=== PATIENT | female | born 1940 | race African-American/Black ===

== ENCOUNTER 2019-08-26 05:51 | Inpatient (IN) | payer MEDICARE, MEDICAID, OTHER ==
[~2019-08-26] VITALS: Ht 157.5 cm; Wt 69.9 kg
[2019-08-26] MEDS ORDERED: SODIUM CHLORIDE 0.9% 1,000 ML IV ONE (06:19)
[2019-08-26] MEDS ORDERED: ONDANSETRON HCL 4MG/2ML INJ IV STA (06:19)
[2019-08-26] MEDS ORDERED: MORPHINE SULFATE 4 MG/ML CPJ (NOT FOR IM USE) IV STA (06:19)
[2019-08-26 06:44] LABS: BASOPHILS % 0.7 % (0.0-2.0); EOSINOPHILS % 3.1 % (0.0-5.0); HEMATOCRIT. 38.3 % (36.0-48.0); HEMOGLOBIN. 12.9 g/dL (12.0-16.0); LYMPHOCYTES % 23.7 % (20.0-50.0); MEAN CORPUSCULAR HEMOGLOBIN 27.2 pg (28.0-32.0); MEAN CORPUSCULAR VOLUME 80.8 fL (81.0-99.0); MEAN PLATELET VOLUME 8.3 fl (7.4-10.4); MONOCYTES % 9.6 % (2.0-8.0); NEUTROPHILS % 62.9 % (40.0-76.0); PLATELET 227 x1000/uL (130-400); RED BLOOD CELL COUNT 4.74 mill/uL (4.2-5.4); RED CELL DISTRIBUTION WIDTH 13.5 % (11.6-14.6)
[2019-08-26 06:50] LABS: CHLORIDE 110 mEq/L (98-107)
[2019-08-26 06:59] LABS: CREATINE KINASE 83 IU/L (26-192)
[2019-08-26 07:01] LABS: CREATINE KINASE MB FRACTION 1.2 ng/mL (0.5-3.6)
[2019-08-26 10:30] VITALS: BP 138/64
[2019-08-26] MEDS ORDERED: ASPI-1497 MT (11:11)
[2019-08-26] MEDS ORDERED: IBUP-2028 MT (11:11)
[2019-08-26] MEDS: INSULIN LISPRO 100 UNITS/ML SUBCUT SCH ×3 (12:15→20:51)
[2019-08-26] MEDS ORDERED: DEXTROSE 50% WATER 50ML SYRINGE IV PRN (12:15)
[2019-08-26] MEDS ORDERED: IBUPROFEN 400MG TABLET PO PRN (12:15)
[2019-08-26 12:30] VITALS: BP 140/62
[2019-08-26] MEDS ORDERED: HYDROCODONE/ACETAMINOPHEN 5/325MG TABLET PO PRN (14:00)
[2019-08-26] MEDS: ASPIRIN 81MG TABLET PO SCH (14:08)
[2019-08-26 16:25] VITALS: BP 116/48
[2019-08-26 16:38] LABS: CREATINE KINASE 92 IU/L (26-192)
[2019-08-26 16:39] LABS: CREATINE KINASE MB FRACTION 1.4 ng/mL (0.5-3.6)
[2019-08-26] MEDS: BLOOD SUGAR DIAGNOSTIC STRIP TEST SCH ×2 (17:33→20:51)
[2019-08-26 20:00] VITALS: BP 126/68
[2019-08-27] VITALS: BP 144/67
[2019-08-27 04:00] VITALS: BP 135/77
[2019-08-27] MEDS: INSULIN LISPRO 100 UNITS/ML SUBCUT SCH ×3 (06:14→17:15)
[2019-08-27] MEDS: BLOOD SUGAR DIAGNOSTIC STRIP TEST SCH ×3 (06:14→16:45)
[2019-08-27 08:00] VITALS: BP 127/74
[2019-08-27] MEDS ORDERED: ASPIRIN 81MG EC TABLET PO SCH (09:00)
[2019-08-27 12:00] VITALS: BP 141/73
[2019-08-27] MEDS: ASPIRIN 81MG TABLET PO SCH (15:37)
[2019-08-27 16:00] VITALS: BP 132/63
[2019-08-27 16:51] VITALS: BP 132/63
== END 2019-08-27 18:40 | disposition home or self-care (01) | DRG 552 ==
LOC: ER 05:51 → EDBD 05:51 → 5WST 08:29 → ENRESERV 09:54
PROVIDERS: ADMIT Internal Medicine; ATTEND Internal Medicine
DX: M51.36 Other intervertebral disc degeneration, lumbar region (principal); M79.662 Pain in left lower leg; R07.9 Chest pain, unspecified; I25.10 Atherosclerotic heart disease of native coronary artery without angina pectoris; M19.90 Unspecified osteoarthritis, unspecified site; M48.00 Spinal stenosis, site unspecified; Z86.718 Personal history of other venous thrombosis and embolism; Z90.710 Acquired absence of both cervix and uterus; Z90.49 Acquired absence of other specified parts of digestive tract; Z79.899 Other long term (current) drug therapy; Z79.82 Long term (current) use of aspirin
CPT/HCPCS: 36415; 72148; 80053; 82550; 82553; 82962; 83735; 84484; 85025; 93005; 93306; 93970; 96374; 99285; J2270; J2405; J7030

== ENCOUNTER 2022-05-16 10:53 | Emergency (ER) | payer MEDICARE, MEDICAID ==
[~2022-05-16] VITALS: Ht 157.5 cm; Wt 73.0 kg
[~2022-05-16 10:53] MED LIST: ASPI-1497 MT; IBUP-2028 MT
[2022-05-16] MEDS ORDERED: ACETAMINOPHEN 325MG TABLET PO STA (11:53)
[2022-05-16 12:47] LABS: BASOPHILS % 0.6 % (0.0-2.0); EOSINOPHILS % 2.2 % (0.0-5.0); HEMATOCRIT. 38.9 % (36.0-48.0); HEMOGLOBIN. 12.5 g/dL (12.0-16.0); MEAN CORPUSCULAR HEMOGLOBIN 26.2 pg (28.0-32.0); MEAN CORPUSCULAR VOLUME 81.8 fL (81.0-99.0); MEAN PLATELET VOLUME 8.2 fl (7.4-10.4); MONOCYTES % 14.9 % (2.0-8.0); NEUTROPHILS % 65.3 % (40.0-76.0); PLATELET 299 x1000/uL (130-400); RED BLOOD CELL COUNT 4.76 mill/uL (4.2-5.4); RED CELL DISTRIBUTION WIDTH 14.6 % (11.6-14.6)
[2022-05-16 13:34] LABS: CLARITY URINE CLEAR (CLEAR); COLOR URINE YELLOW (YELLOW); KETONES URINE NEGATIVE (NEGATIVE); LEUKOCYTE ESTERASE URINE 1+ (NEGATIVE); NITRITE URINE NEGATIVE (NEGATIVE); OCCULT BLOOD URINE 2+ (NEGATIVE); PH URINE 6.5 (4.5-8.0); PROTEIN URINE NEGATIVE (NEGATIVE); SPECIFIC GRAVITY URINE 1.006 (1.005-1.030); UROBILINOGEN URINE 0.2 E.U./dL (0.2-1.0)
[2022-05-16 13:37] LABS: CHLORIDE 108 mEq/L (98-107)
[2022-05-16] MEDS ORDERED: NAPR375T5 PO (14:44)
[2022-05-16] MEDS ORDERED: SULF1TAB48 PO (14:44)
[2022-05-16] MEDS ORDERED: ONDA4TAB50 PO (14:44)
[2022-05-16 15:07] VITALS: BP 136/59
== END 2022-05-16 15:13 | disposition home or self-care (01) ==
LOC: ER 10:53
DX: S09.93XA Unspecified injury of face, initial encounter (principal); I10 Essential (primary) hypertension; N39.0 Urinary tract infection, site not specified; Z20.822 Contact with and (suspected) exposure to COVID-19; Z90.49 Acquired absence of other specified parts of digestive tract; W01.0XXA Fall on same level from slipping, tripping and stumbling without subsequent striking against object, initial encounter; Y93.01 Activity, walking, marching and hiking; Y92.89 Other specified places as the place of occurrence of the external cause; Y99.8 Other external cause status
CPT/HCPCS: 36415; 70450; 70486; 71045; 80053; 81003; 83605; 83690; 83880; 85025; 87426; 93970; 99285; C9803

== ENCOUNTER 2022-06-10 09:43 | Inpatient (IN) | payer MEDICARE, MEDICAID ==
[~2022-06-10] VITALS: Ht 154.9 cm; Wt 66.7 kg
[~2022-06-10 09:43] MED LIST changes: +NAPR375T5 PO; +ONDA4TAB50 PO; +SULF1TAB48 PO
[2022-06-10 12:41] LABS: BASOPHILS % 0.6 % (0.0-2.0); EOSINOPHILS % 1.5 % (0.0-5.0); HEMATOCRIT. 38.3 % (36.0-48.0); HEMOGLOBIN. 12.6 g/dL (12.0-16.0); LYMPHOCYTES % 11.6 % (20.0-50.0); MEAN CORPUSCULAR VOLUME 78.9 fL (81.0-99.0); MEAN PLATELET VOLUME 7.8 fl (7.4-10.4); MONOCYTES % 11.6 % (2.0-8.0); NEUTROPHILS % 74.7 % (40.0-76.0); PLATELET 342 x1000/uL (130-400); RED BLOOD CELL COUNT 4.86 mill/uL (4.2-5.4); RED CELL DISTRIBUTION WIDTH 14.9 % (11.6-14.6)
[2022-06-10 12:49] LABS: CHLORIDE 107 mEq/L (98-107)
[2022-06-10 16:40] LABS: PROTHROMBIN TIME 10.6 sec (9.6-11.0)
[2022-06-10 17:01] LABS: CREATINE KINASE 4207 IU/L (26-192)
[2022-06-10 17:02] LABS: HEPATITIS B SURFACE ANTIGEN NEGATIVE
[2022-06-10] MEDS ORDERED: ACETAMINOPHEN 325MG TABLET PO PRN ×2 (18:15)
[2022-06-10] MEDS ORDERED: CLONIDINE 0.1MG TABLET PO PRN (18:15)
[2022-06-10] MEDS ORDERED: ONDANSETRON HCL 4MG/2ML INJ IV PRN (18:15)
[2022-06-10] MEDS ORDERED: AMLO5TAB4 MT (18:29)
[2022-06-10 18:31] VITALS: BP 141/66
[2022-06-10 20:00] VITALS: BP 144/60
[2022-06-10] MEDS: SODIUM CHLORIDE 0.9% INJ 3ML FLUSH IVF SCH (20:27)
[2022-06-10] MEDS: DIPHENHYDRAMINE 50MG/ML VIAL IV PRN (21:34)
[2022-06-11] VITALS: BP 148/70
[2022-06-11 04:00] VITALS: BP 110/47
[2022-06-11] MEDS: SODIUM CHLORIDE 0.9% INJ 3ML FLUSH IVF SCH ×4 (06:00→22:14)
[2022-06-11 06:33] LABS: HEMATOCRIT. 36.9 % (36.0-48.0); HEMOGLOBIN. 11.9 g/dL (12.0-16.0); MEAN CORPUSCULAR HEMOGLOBIN 25.8 pg (28.0-32.0); MEAN CORPUSCULAR VOLUME 80.4 fL (81.0-99.0); MEAN PLATELET VOLUME 8.4 fl (7.4-10.4); PLATELET 320 x1000/uL (130-400); RED BLOOD CELL COUNT 4.59 mill/uL (4.2-5.4); RED CELL DISTRIBUTION WIDTH 14.7 % (11.6-14.6)
[2022-06-11 08:00] VITALS: BP 112/59
[2022-06-11 08:41] LABS: CHLORIDE 107 mEq/L (98-107)
[2022-06-11 09:03] LABS: CREATINE KINASE 3469 IU/L (26-192)
[2022-06-11] MEDS: AMLODIPINE 5MG TABLET PO SCH (09:12)
[2022-06-11] MEDS: DIPHENHYDRAMINE 50MG/ML VIAL IV PRN (09:12)
[2022-06-11] MEDS: ASPIRIN 81MG TABLET PO SCH (09:13)
[2022-06-11 12:00] VITALS: BP 132/87
[2022-06-11 14:26] LABS: PLATELET ESTIMATE NORMAL
[2022-06-11 20:00] VITALS: BP 143/64
[2022-06-12] VITALS: BP 116/46
[2022-06-12 04:00] VITALS: BP 107/45
[2022-06-12] MEDS: SODIUM CHLORIDE 0.9% INJ 3ML FLUSH IVF SCH ×3 (06:00→21:09)
[2022-06-12 07:25] LABS: BASOPHILS % 0.6 % (0.0-2.0); EOSINOPHILS % 4.1 % (0.0-5.0); HEMOGLOBIN. 12.2 g/dL (12.0-16.0); LYMPHOCYTES % 14.7 % (20.0-50.0); MEAN CORPUSCULAR HEMOGLOBIN 26.1 pg (28.0-32.0); MEAN CORPUSCULAR VOLUME 78.8 fL (81.0-99.0); MEAN PLATELET VOLUME 8.3 fl (7.4-10.4); MONOCYTES % 14.6 % (2.0-8.0); PLATELET 304 x1000/uL (130-400); RED CELL DISTRIBUTION WIDTH 14.9 % (11.6-14.6)
[2022-06-12 07:51] LABS: CHLORIDE 109 mEq/L (98-107)
[2022-06-12 08:00] VITALS: BP 111/66
[2022-06-12 08:19] LABS: CREATINE KINASE 3111 IU/L (26-192)
[2022-06-12] MEDS: AMLODIPINE 5MG TABLET PO SCH (09:13)
[2022-06-12] MEDS: ASPIRIN 81MG TABLET PO SCH (09:13)
[2022-06-12 12:00] VITALS: BP 117/49
[2022-06-12 13:06] LABS: ANTI-NUCLEAR ANTIBODIES DIRECT Negative (Negative)
[2022-06-12] MEDS: DIPHENHYDRAMINE 50MG/ML VIAL IV PRN (13:55)
[2022-06-12 16:00] VITALS: BP 116/58
[2022-06-12 20:00] VITALS: BP 125/67
[2022-06-12] MEDS: HYDROCORTISONE 2.5% OINT 20GM TOP SCH (21:08)
[2022-06-12] MEDS: HYDROXYCHLOROQUINE SULFATE 200MG TABLET PO SCH (21:08)
[2022-06-12] MEDS: MYCOPHENOLATE MOFETIL 500MG TABLET PO SCH (21:09)
[2022-06-12] MEDS: CELECOXIB 200MG CAPSULE PO SCH (21:09)
[2022-06-13] VITALS: BP 135/61
[2022-06-13] MEDS: METHYLPREDNISOLONE SOD SUCC 40 MG/ML VIAL IV SCH ×4 (00:13→17:51)
[2022-06-13 04:00] VITALS: BP 120/51
[2022-06-13] MEDS: SODIUM CHLORIDE 0.9% INJ 3ML FLUSH IVF SCH ×3 (05:11→21:36)
[2022-06-13 05:13] LABS: ALDOLASE 34.5 U/L (3.3-10.3)
[2022-06-13 07:15] LABS: BASOPHILS % 0.3 % (0.0-2.0); HEMATOCRIT. 37.5 % (36.0-48.0); LYMPHOCYTES % 8.2 % (20.0-50.0); MEAN CORPUSCULAR HEMOGLOBIN 25.7 pg (28.0-32.0); MEAN CORPUSCULAR VOLUME 80.4 fL (81.0-99.0); MEAN PLATELET VOLUME 8.1 fl (7.4-10.4); MONOCYTES % 1.7 % (2.0-8.0); NEUTROPHILS % 89.8 % (40.0-76.0); PLATELET 294 x1000/uL (130-400); RED BLOOD CELL COUNT 4.67 mill/uL (4.2-5.4); RED CELL DISTRIBUTION WIDTH 14.6 % (11.6-14.6)
[2022-06-13 07:17] LABS: CHLORIDE 107 mEq/L (98-107)
[2022-06-13 07:43] LABS: CREATINE KINASE 3097 IU/L (26-192)
[2022-06-13] MEDS: BETAMETHASONE DIPROPIONATE 0.05% LOTION 60ML TOP SCH ×2 (09:00→21:00)
[2022-06-13] MEDS: MYCOPHENOLATE MOFETIL 500MG TABLET PO SCH ×2 (11:55→21:35)
[2022-06-13] MEDS: CELECOXIB 200MG CAPSULE PO SCH ×2 (11:55→17:51)
[2022-06-13] MEDS: ASPIRIN 81MG TABLET PO SCH (11:55)
[2022-06-13] MEDS: HYDROXYCHLOROQUINE SULFATE 200MG TABLET PO SCH (11:55)
[2022-06-13] MEDS: AMLODIPINE 5MG TABLET PO SCH (11:55)
[2022-06-13] MEDS: DIPHENHYDRAMINE 50MG/ML VIAL IV PRN (11:56)
[2022-06-13] MEDS: AZATHIOPRINE 50MG TABLET PO SCH (11:56)
[2022-06-13 12:00] VITALS: BP 121/53
[2022-06-13] MEDS ORDERED: DOCUSATE SODIUM 250MG CAPSULE PO PRN (12:30)
[2022-06-13 16:00] VITALS: BP 131/79
[2022-06-13 20:00] VITALS: BP 115/90
[2022-06-13] MEDS: HYDROCORTISONE 2.5% OINT 20GM TOP SCH (21:34)
[2022-06-14] VITALS: BP 117/58
[2022-06-14] MEDS: METHYLPREDNISOLONE SOD SUCC 40 MG/ML VIAL IV SCH ×4 (00:48→17:08)
[2022-06-14 04:00] VITALS: BP 110/52
[2022-06-14] MEDS: SODIUM CHLORIDE 0.9% INJ 3ML FLUSH IVF SCH ×3 (05:04→22:31)
[2022-06-14 08:00] VITALS: BP 109/62
[2022-06-14 08:46] LABS: HEMATOCRIT. 35.3 % (36.0-48.0); HEMOGLOBIN. 11.6 g/dL (12.0-16.0); MEAN CORPUSCULAR HEMOGLOBIN 25.9 pg (28.0-32.0); MEAN CORPUSCULAR VOLUME 79.1 fL (81.0-99.0); MEAN PLATELET VOLUME 8.3 fl (7.4-10.4); PLATELET 321 x1000/uL (130-400); RED BLOOD CELL COUNT 4.46 mill/uL (4.2-5.4); RED CELL DISTRIBUTION WIDTH 14.3 % (11.6-14.6)
[2022-06-14] MEDS: AMLODIPINE 5MG TABLET PO SCH (09:00)
[2022-06-14 09:11] LABS: CHLORIDE 109 mEq/L (98-107)
[2022-06-14] MEDS: ASPIRIN 81MG TABLET PO SCH (09:13)
[2022-06-14] MEDS: HYDROXYCHLOROQUINE SULFATE 200MG TABLET PO SCH (09:13)
[2022-06-14] MEDS: MYCOPHENOLATE MOFETIL 500MG TABLET PO SCH (09:13)
[2022-06-14] MEDS: AZATHIOPRINE 50MG TABLET PO SCH (09:13)
[2022-06-14] MEDS: CELECOXIB 200MG CAPSULE PO SCH ×2 (09:39→17:07)
[2022-06-14 11:05] LABS: PLATELET ESTIMATE NORMAL
[2022-06-14 12:00] VITALS: BP 137/70
[2022-06-14] MEDS: BETAMETHASONE DIPROPIONATE 0.05% LOTION 60ML TOP SCH ×2 (14:50→21:00)
[2022-06-14] MEDS ORDERED: DEXTROSE 50% WATER 50ML SYRINGE IV PRN (15:45)
[2022-06-14 16:00] VITALS: BP_SYST 139; BP_SYST 150; BP_DIAS 75; BP_DIAS 79
[2022-06-14] MEDS: BLOOD SUGAR DIAGNOSTIC STRIP TEST SCH ×2 (16:41→21:00)
[2022-06-14] MEDS: INSULIN LISPRO 100 UNITS/ML SUBCUT SCH ×3 (17:10→21:00)
[2022-06-14] MEDS ORDERED: INSULIN LISPRO 100 UNITS/ML SUBCUT SCH (18:10)
[2022-06-14 20:37] VITALS: BP 129/64
[2022-06-14] MEDS: INSULIN GLARGINE 100 UNITS/ML SUBCUT SCH (22:23)
[2022-06-14] MEDS: HYDROCORTISONE 2.5% OINT 20GM TOP SCH (22:26)
[2022-06-15 00:10] VITALS: BP 110/42
[2022-06-15] MEDS: METHYLPREDNISOLONE SOD SUCC 40 MG/ML VIAL IV SCH ×4 (00:51→17:03)
[2022-06-15 04:00] VITALS: BP 110/55
[2022-06-15] MEDS: SODIUM CHLORIDE 0.9% INJ 3ML FLUSH IVF SCH ×3 (06:13→20:49)
[2022-06-15] MEDS: MYCOPHENOLATE MOFETIL 500MG TABLET PO SCH ×2 (06:13→08:44)
[2022-06-15] MEDS: BLOOD SUGAR DIAGNOSTIC STRIP TEST SCH ×4 (06:14→20:41)
[2022-06-15] MEDS: CELECOXIB 200MG CAPSULE PO SCH ×2 (06:28→17:03)
[2022-06-15 08:00] VITALS: BP 142/67
[2022-06-15] MEDS: INSULIN LISPRO 100 UNITS/ML SUBCUT SCH ×4 (08:10→20:47)
[2022-06-15] MEDS: AMLODIPINE 5MG TABLET PO SCH (08:40)
[2022-06-15] MEDS: ASPIRIN 81MG TABLET PO SCH (08:40)
[2022-06-15] MEDS: HYDROXYCHLOROQUINE SULFATE 200MG TABLET PO SCH (08:40)
[2022-06-15] MEDS: AZATHIOPRINE 50MG TABLET PO SCH (08:40)
[2022-06-15] MEDS: BETAMETHASONE DIPROPIONATE 0.05% LOTION 60ML TOP SCH ×2 (08:41→20:51)
[2022-06-15 12:00] VITALS: BP 133/69
[2022-06-15 12:27] LABS: HEMATOCRIT. 36.7 % (36.0-48.0); HEMOGLOBIN. 11.5 g/dL (12.0-16.0); MEAN CORPUSCULAR HEMOGLOBIN 25.6 pg (28.0-32.0); MEAN CORPUSCULAR VOLUME 81.5 fL (81.0-99.0); MEAN PLATELET VOLUME 8.3 fl (7.4-10.4); PLATELET 328 x1000/uL (130-400); RED BLOOD CELL COUNT 4.51 mill/uL (4.2-5.4); RED CELL DISTRIBUTION WIDTH 15.1 % (11.6-14.6)
[2022-06-15 12:35] LABS: CHLORIDE 108 mEq/L (98-107)
[2022-06-15 13:06] LABS: G6PD QUANTITATIVE 357 (127-427)
[2022-06-15 13:17] LABS: PLATELET ESTIMATE NORMAL
[2022-06-15 13:44] VITALS: BP 133/69
[2022-06-15 16:00] VITALS: BP 132/63
[2022-06-15] MEDS: INSULIN GLARGINE 100 UNITS/ML SUBCUT SCH (20:48)
[2022-06-15] MEDS: HYDROCORTISONE 2.5% OINT 20GM TOP SCH (20:51)
[2022-06-16 10:10] LABS: ANTI-DNA DOUBLE STRANDED QUANT 5 IU/mL (0-9); ANTI-JO 1 ABS <0.2 AI (0.0-0.9); RNP ANTIBODY < 0.2 AI (0.0-0.9)
[2022-06-16 13:06] LABS: ACTIN (SMOOTH MUSCLE) ANTIBODY 7 Units (0-19); ANGIOTENSION CONVERTING ENZYME 44 U/L (14-82)
[2022-06-16 15:09] LABS: ANTI-CARDIOLIPIN AB IGA < 9 APL U/mL (0-11); ANTI-CARDIOLIPIN AB IGM 16 MPL U/mL (0-12)
[2022-06-16 17:11] LABS: ANTI-MYELOPEROXIDASE AB < 0.2 units (0.0-0.9); ANTI-PROTEINASE 3 ABS < 0.2 units (0.0-0.9)
[2022-06-17 09:10] LABS: CYC CITRULLINATED PEP IgG/IgA 9 units (0-19)
[2022-06-17 13:06] LABS: ATYPICAL P-ANCA <1:20 titer (Neg:<1:20); CYTOPLASMIC C-ANCA <1:20 titer (Neg:<1:20); PERINUCLEAR P-ANCA <1:20 titer (Neg:<1:20)
[2022-06-18 13:06] LABS: ANA IFA Positive (.)
== END 2022-06-15 22:03 | DRG 545 ==
LOC: ER 09:43 → 7WST 14:57 → EDBEDREQ 15:02 → EDBEDREQTM 15:02 → EDBEDREQSVC 15:02 → ENRESERV 15:14
PROVIDERS: ADMIT Internal Medicine; ATTEND Internal Medicine
DX: M33.20 Polymyositis, organ involvement unspecified (principal); E43 Unspecified severe protein-calorie malnutrition; I21.4 Non-ST elevation (NSTEMI) myocardial infarction; M48.02 Spinal stenosis, cervical region; E86.0 Dehydration; I10 Essential (primary) hypertension; B19.20 Unspecified viral hepatitis C without hepatic coma; M51.37 Other intervertebral disc degeneration, lumbosacral region; L81.6 Other disorders of diminished melanin formation; R74.01 Elevation of levels of liver transaminase levels; M51.36 Other intervertebral disc degeneration, lumbar region; M50.31 Other cervical disc degeneration, high cervical region; D72.810 Lymphocytopenia; M13.0 Polyarthritis, unspecified; M79.89 Other specified soft tissue disorders; R60.0 Localized edema; Z90.710 Acquired absence of both cervix and uterus; Z87.440 Personal history of urinary (tract) infections; Z68.27 Body mass index [BMI] 27.0-27.9, adult; Z79.899 Other long term (current) drug therapy; Z86.718 Personal history of other venous thrombosis and embolism; Z90.49 Acquired absence of other specified parts of digestive tract; Z86.16 Personal history of COVID-19; Z79.82 Long term (current) use of aspirin
CPT/HCPCS: 36415; 70551; 71045; 72141; 72146; 72148; 73080; 73130; 73220; 73562; 73718; 76700; 80048; 80053; 80076; 82085; 82140; 82164; 82550; 82955; 82962; 83036; 83520; 83605; 83615; 83880; 84443; 84484; 84550; 85025; 85041; 85651; 86038; 86147; 86160; 86200; 86225; 86235; 86256; 86431; 86705; 86709; 86803; 87340; 93005; 93306; 93970; 97162; 97166; 97530; 99285; J1200; J1815; J2920; J7500; J7517

== ENCOUNTER 2022-07-23 17:14 | Inpatient (IN) | payer MEDICARE, MEDICAID ==
[~2022-07-23] VITALS: Ht 160 cm; Wt 82.6 kg
[~2022-07-23 17:14] MED LIST changes: +AMLO5TAB4 MT; -ONDA4TAB50 PO; -SULF1TAB48 PO
[2022-07-23] MEDS ORDERED: SODIUM CHLORIDE 0.9% 1,000 ML IV ONE (18:00)
[2022-07-23 18:09] LABS: HEMATOCRIT. 33.8 % (36.0-48.0); HEMOGLOBIN. 10.9 g/dL (12.0-16.0); MEAN CORPUSCULAR HEMOGLOBIN 26.4 pg (28.0-32.0); MEAN CORPUSCULAR VOLUME 82.1 fL (81.0-99.0); MEAN PLATELET VOLUME 7.8 fl (7.4-10.4); PLATELET 155 x1000/uL (130-400); RED BLOOD CELL COUNT 4.12 mill/uL (4.2-5.4); RED CELL DISTRIBUTION WIDTH 17.2 % (11.6-14.6)
[2022-07-23 18:18] LABS: PROTHROMBIN TIME 10.5 sec (9.6-11.0)
[2022-07-23 18:30] LABS: CHLORIDE 103 mEq/L (98-107)
[2022-07-23] MEDS ORDERED: ASPIRIN 325MG TABLET PO ONE (19:45)
[2022-07-23 19:51] LABS: PLATELET ESTIMATE NORMAL
[2022-07-23] MEDS ORDERED: PIPERACILLIN/TAZ 3.375G PREMIX 50 ML IV NR (20:15)
[2022-07-23] MEDS ORDERED: PIPERACILLIN/TAZOBACTAM 3.375GM/50ML PREMIX IV ONE (20:15)
[2022-07-23] MEDS ORDERED: VANCOMYCIN 1G PREMIX 200 ML IV SCH (21:00)
[2022-07-23] MEDS ORDERED: MORPHINE SULFATE 2 MG/ML CPJ (NOT FOR IM USE) IV ONE (21:30)
[2022-07-23] MEDS ORDERED: NITROGLYCERIN 0.4MG TABLET SL SL PRN (23:15)
[2022-07-23] MEDS ORDERED: MORPHINE SULFATE 2 MG/ML CPJ (NOT FOR IM USE) IV PRN (23:15)
[2022-07-23] MEDS ORDERED: KETOROLAC 15MG/ML VIAL IV PRN (23:15)
[2022-07-23] MEDS ORDERED: PIPERACILLIN/TAZ 3.375G PREMIX 50 ML IV SCH (23:15)
[2022-07-23] MEDS ORDERED: ACETAMINOPHEN 650MG SUPP PR PRN ×2 (23:15)
[2022-07-23] MEDS ORDERED: NA PHOS,M-B/NA PHOS,DI-BA ENEMA 118ML PR PRN (23:15)
[2022-07-23 23:25] LABS: CLARITY URINE CLEAR (CLEAR); COLOR URINE YELLOW (YELLOW); KETONES URINE NEGATIVE (NEGATIVE); LEUKOCYTE ESTERASE URINE 1+ (NEGATIVE); NITRITE URINE NEGATIVE (NEGATIVE); OCCULT BLOOD URINE NEGATIVE (NEGATIVE); PH URINE 6.5 (4.5-8.0); PROTEIN URINE 1+ (NEGATIVE); SPECIFIC GRAVITY URINE 1.016 (1.005-1.030); UROBILINOGEN URINE 0.2 E.U./dL (0.2-1.0)
[2022-07-23] MEDS: ONDANSETRON HCL 4MG/2ML INJ IV PRN (23:27)
[2022-07-23 23:54] LABS: *AMPHETAMINES SCREEN URINE NEGATIVE (NEGATIVE); *BARBITURATES SCREEN URINE NEGATIVE (NEGATIVE); *BENZODIAZEPINES SCREEN URINE NEGATIVE (NEGATIVE); *COCAINE SCREEN URINE NEGATIVE (NEGATIVE); CANNABINOID URINE SCREEN NEGATIVE (NEGATIVE); METHADONE URINE SCREEN NEGATIVE (NEGATIVE); OPIATES URINE SCREEN NEGATIVE (NEGATIVE); PHENCYCLIDINE URINE SCREEN NEGATIVE (NEGATIVE)
[2022-07-24 00:04] LABS: T4 FREE 1.04 ng/dL (0.76-1.46)
[2022-07-24 00:24] LABS: VITAMIN B12 SERUM 1252 pg/mL (211-911)
[2022-07-24 00:30] VITALS: BP 119/66
[2022-07-24 01:55] VITALS: BP 119/66
[2022-07-24] MEDS ORDERED: NALOXONE HCL 0.4MG/ML VIAL IV PRN (02:00)
[2022-07-24] MEDS: DEXT 5%/LACTATED RINGERS 1,000 ML IV SCH ×2 (03:13→21:46)
[2022-07-24 07:38] LABS: MEAN CORPUSCULAR HEMOGLOBIN 26.8 pg (28.0-32.0); MEAN CORPUSCULAR VOLUME 80.6 fL (81.0-99.0); MEAN PLATELET VOLUME 7.9 fl (7.4-10.4); PLATELET 123 x1000/uL (130-400); RED BLOOD CELL COUNT 3.36 mill/uL (4.2-5.4); RED CELL DISTRIBUTION WIDTH 17.1 % (11.6-14.6)
[2022-07-24 08:12] VITALS: BP 103/53
[2022-07-24] MEDS: PANTOPRAZOLE SODIUM 40 MG/VIAL IV SCH (08:20)
[2022-07-24] MEDS: PIPERACILLIN/TAZOBACTAM 3.375G in DEXT 5% WATER 50ML IV SCH ×3 (08:20→21:46)
[2022-07-24 08:55] LABS: CHLORIDE 106 mEq/L (98-107)
[2022-07-24] MEDS ORDERED: ENOXAPARIN 40MG/0.4ML SYR SUBCUT SCH (09:00)
[2022-07-24 09:08] LABS: PHOSPHORUS 2.9 mg/dL (2.5-4.9)
[2022-07-24] MEDS ORDERED: INFLUENZA VACCINE 05/PF 0.5 ML SYRINGE IM ONE (10:00)
[2022-07-24] MEDS ORDERED: PNEUMOCOCCAL 23-VAL P-SAC VAC 0.5 ML IM ONE (10:00)
[2022-07-24] MEDS: VANCOMYCIN 750MG PMX (XELLIA) 150 ML IV SCH (11:24)
[2022-07-24 11:54] LABS: PLATELET ESTIMATE SLIGHTLY DECREASED
[2022-07-24 11:56] VITALS: BP 100/50
[2022-07-24 15:38] VITALS: BP 95/50
[2022-07-24] MEDS ORDERED: CELE200C MT (18:00)
[2022-07-24] MEDS ORDERED: CALC-959 PO (18:00)
[2022-07-24] MEDS ORDERED: AZAT50TA24 PO (18:00)
[2022-07-24] MEDS ORDERED: CHOL400D7 MT (18:00)
[2022-07-24] MEDS ORDERED: DEXTL PO (18:00)
[2022-07-24] MEDS ORDERED: MYCO500V3 IV (18:00)
[2022-07-24] MEDS ORDERED: P20 PO (18:00)
[2022-07-24 20:00] VITALS: BP 102/50
[2022-07-25] VITALS: BP 113/68
[2022-07-25] MEDS: DEXT 5%/LACTATED RINGERS 1,000 ML IV SCH ×2 (02:10→20:08)
[2022-07-25 04:00] VITALS: BP 100/54
[2022-07-25] MEDS: VANCOMYCIN 750MG PMX (XELLIA) 150 ML IV SCH (05:49)
[2022-07-25] MEDS: PIPERACILLIN/TAZOBACTAM 3.375G in DEXT 5% WATER 50ML IV SCH ×3 (06:49→20:08)
[2022-07-25 06:54] LABS: MEAN CORPUSCULAR HEMOGLOBIN 26.7 pg (28.0-32.0); MEAN CORPUSCULAR VOLUME 80.3 fL (81.0-99.0); PLATELET 126 x1000/uL (130-400); RED BLOOD CELL COUNT 2.99 mill/uL (4.2-5.4); RED CELL DISTRIBUTION WIDTH 17.4 % (11.6-14.6)
[2022-07-25 07:30] VITALS: BP 113/50
[2022-07-25] MEDS: PANTOPRAZOLE SODIUM 40 MG/VIAL IV SCH (08:32)
[2022-07-25] MEDS ORDERED: ENOXAPARIN 60MG/0.6ML SYR SUBCUT SCH (09:00)
[2022-07-25 10:24] LABS: CHLORIDE 112 mEq/L (98-107)
[2022-07-25 10:35] LABS: PHOSPHORUS 3.6 mg/dL (2.5-4.9)
[2022-07-25 12:00] VITALS: BP 103/51
[2022-07-25 15:40] VITALS: BP 103/51
[2022-07-25 20:00] VITALS: BP 118/59
[2022-07-26] VITALS (7 sets, daily range): BP systolic 105–143; BP diastolic 50–61
[2022-07-26] MEDS: DEXT 5%/LACTATED RINGERS 1,000 ML IV SCH ×2 (05:31→20:33)
[2022-07-26] MEDS: PIPERACILLIN/TAZOBACTAM 3.375G in DEXT 5% WATER 50ML IV SCH ×3 (05:31→20:33)
[2022-07-26 07:20] LABS: HEMATOCRIT. 23.9 % (36.0-48.0); HEMOGLOBIN. 7.9 g/dL (12.0-16.0); MEAN CORPUSCULAR HEMOGLOBIN 26.4 pg (28.0-32.0); MEAN CORPUSCULAR VOLUME 80.2 fL (81.0-99.0); MEAN PLATELET VOLUME 7.8 fl (7.4-10.4); PLATELET 135 x1000/uL (130-400); RED BLOOD CELL COUNT 2.98 mill/uL (4.2-5.4); RED CELL DISTRIBUTION WIDTH 17.5 % (11.6-14.6)
[2022-07-26 07:35] LABS: CHLORIDE 112 mEq/L (98-107)
[2022-07-26] MEDS: PANTOPRAZOLE SODIUM 40 MG/VIAL IV SCH (08:40)
[2022-07-26] MEDS: ENOXAPARIN 80MG/0.8ML SYR SUBCUT SCH (08:41)
[2022-07-26 11:02] LABS: PLATELET ESTIMATE NORMAL
[2022-07-26] MEDS ORDERED: POTASSIUM CHLORIDE 20MEQ/PACKET PO NR (11:30)
[2022-07-27] VITALS (7 sets, daily range): BP systolic 125–139; BP diastolic 50–68
[2022-07-27] MEDS: IPRATROPIUM/ALBUTEROL 0.5-3(2.5)MG/3ML NEB NEB PRN (00:23)
[2022-07-27] MEDS: PIPERACILLIN/TAZOBACTAM 3.375G in DEXT 5% WATER 50ML IV SCH ×3 (05:30→21:41)
[2022-07-27] MEDS: DEXT 5%/LACTATED RINGERS 1,000 ML IV SCH ×2 (05:30→21:40)
[2022-07-27] MEDS: NYSTATIN 100,000 UNITS/ML 5ML UDC SSW SCH ×3 (05:30→17:08)
[2022-07-27 07:36] LABS: PARTIAL THROMBOPLASTIN TIME 29.9 sec (23.4-31.0); PROTHROMBIN TIME 10.9 sec (9.6-11.0)
[2022-07-27 08:24] LABS: CREATINE KINASE 82 IU/L (26-192)
[2022-07-27] MEDS: ENOXAPARIN 80MG/0.8ML SYR SUBCUT SCH (09:13)
[2022-07-27] MEDS: PANTOPRAZOLE SODIUM 40 MG/VIAL IV SCH (09:13)
[2022-07-27] MEDS: SILDENAFIL CITRATE 20MG TABLET PO SCH ×2 (14:00→22:00)
[2022-07-27] MEDS: WARFARIN SODIUM 2.5MG TABLET PO SCH (17:08)
[2022-07-27] MEDS: METHYLPREDNISOLONE SOD SUCC 125 MG/2 ML VIAL IV SCH (18:31)
[2022-07-27] MEDS ORDERED: BISACODYL 10MG SUPP PR NR (20:30)
[2022-07-28] MEDS: NYSTATIN 100,000 UNITS/ML 5ML UDC SSW SCH ×4 (00:40→23:28)
[2022-07-28] MEDS: METHYLPREDNISOLONE SOD SUCC 125 MG/2 ML VIAL IV SCH ×5 (00:41→23:28)
[2022-07-28 04:00] VITALS: BP 134/61
[2022-07-28] MEDS: PIPERACILLIN/TAZOBACTAM 3.375G in DEXT 5% WATER 50ML IV SCH (05:05)
[2022-07-28] MEDS: SILDENAFIL CITRATE 20MG TABLET PO SCH ×3 (05:06→21:52)
[2022-07-28 06:10] LABS: PROTHROMBIN TIME 10.9 sec (9.6-11.0)
[2022-07-28 06:20] LABS: BASOPHILS % 0.2 % (0.0-2.0); HEMATOCRIT. 25.8 % (36.0-48.0); HEMOGLOBIN. 8.6 g/dL (12.0-16.0); LYMPHOCYTES % 10.4 % (20.0-50.0); MEAN CORPUSCULAR HEMOGLOBIN 26.2 pg (28.0-32.0); MEAN CORPUSCULAR VOLUME 78.9 fL (81.0-99.0); MEAN PLATELET VOLUME 7.8 fl (7.4-10.4); MONOCYTES % 3.4 % (2.0-8.0); PLATELET 107 x1000/uL (130-400); RED BLOOD CELL COUNT 3.27 mill/uL (4.2-5.4); RED CELL DISTRIBUTION WIDTH 17.4 % (11.6-14.6)
[2022-07-28 08:00] VITALS: BP 139/62
[2022-07-28] MEDS: PANTOPRAZOLE SODIUM 40 MG/VIAL IV SCH (09:13)
[2022-07-28] MEDS: ENOXAPARIN 80MG/0.8ML SYR SUBCUT SCH (09:13)
[2022-07-28 09:27] LABS: CHLORIDE 116 mEq/L (98-107)
[2022-07-28] MEDS: DEXT 5%/LACTATED RINGERS 1,000 ML IV SCH ×2 (10:27→23:29)
[2022-07-28 12:00] VITALS: BP 158/74
[2022-07-28] MEDS: KCL 20MEQ/100ML PREMIX 100 ML IV SCH ×2 (12:04→14:36)
[2022-07-28] MEDS: METRONIDAZOLE 500 MG PREMIX 100 ML IV SCH ×2 (15:36→21:52)
[2022-07-28 16:00] VITALS: BP 132/50
[2022-07-28] MEDS: LEVOFLOXACIN 500MG PREMIX 100 ML IV SCH (17:31)
[2022-07-28] MEDS: WARFARIN SODIUM 2.5MG TABLET PO SCH (17:32)
[2022-07-28 20:00] VITALS: BP 129/69
[2022-07-29] VITALS (16 sets, daily range): BP systolic 51–151; BP diastolic 29–84
[2022-07-29] MEDS: METRONIDAZOLE 500 MG PREMIX 100 ML IV SCH ×3 (06:01→22:41)
[2022-07-29] MEDS: NYSTATIN 100,000 UNITS/ML 5ML UDC SSW SCH ×4 (06:01→23:33)
[2022-07-29] MEDS: METHYLPREDNISOLONE SOD SUCC 125 MG/2 ML VIAL IV SCH ×4 (06:01→23:36)
[2022-07-29] MEDS: SILDENAFIL CITRATE 20MG TABLET PO SCH ×3 (06:02→22:00)
[2022-07-29 06:48] LABS: INR 1.1; PROTHROMBIN TIME 11.9 sec (9.6-11.0)
[2022-07-29 07:14] LABS: BASOPHILS % 0.3 % (0.0-2.0); HEMATOCRIT. 27.5 % (36.0-48.0); HEMOGLOBIN. 9.1 g/dL (12.0-16.0); LYMPHOCYTES % 13.5 % (20.0-50.0); MEAN CORPUSCULAR HEMOGLOBIN 26.1 pg (28.0-32.0); MEAN CORPUSCULAR VOLUME 79.1 fL (81.0-99.0); MEAN PLATELET VOLUME 8.8 fl (7.4-10.4); MONOCYTES % 2.6 % (2.0-8.0); NEUTROPHILS % 83.6 % (40.0-76.0); PLATELET 107 x1000/uL (130-400); RED BLOOD CELL COUNT 3.48 mill/uL (4.2-5.4); RED CELL DISTRIBUTION WIDTH 17.6 % (11.6-14.6)
[2022-07-29 08:13] LABS: CHLORIDE 115 mEq/L (98-107)
[2022-07-29 09:07] LABS: ALDOLASE 9.9 U/L (3.3-10.3)
[2022-07-29] MEDS: PANTOPRAZOLE SODIUM 40 MG/VIAL IV SCH (09:19)
[2022-07-29] MEDS: ENOXAPARIN 80MG/0.8ML SYR SUBCUT SCH (09:20)
[2022-07-29] MEDS ORDERED: POTASSIUM CHLORIDE INJ 40 MEQ in DEXT 5% WATER 250 ML IV ONE (11:00)
[2022-07-29] MEDS: LEVOFLOXACIN 500MG PREMIX 100 ML IV SCH (11:11)
[2022-07-29] MEDS ORDERED: POTASSIUM CHLORIDE 20MEQ/PACKET PO NR ×2 (11:15→18:45)
[2022-07-29] MEDS: KCL 20MEQ/100ML X 2 FOR TOTAL KCL 40MEQ/200ML IV SCH ×2 (12:32→16:54)
[2022-07-29] MEDS: DEXT 5%/LACTATED RINGERS 1,000 ML IV SCH (16:56)
[2022-07-29 17:01] LABS: CHLORIDE 114 mEq/L (98-107)
[2022-07-29] MEDS: WARFARIN SODIUM 2.5MG TABLET PO SCH (17:28)
[2022-07-29] MEDS ORDERED: LORAZEPAM 2MG/ML CPJ IV SCH (20:30)
[2022-07-29 20:34] LABS: BG BASE EXCESS -3.3 mmol/L (-2.0-2.0); BG CARBOXYHEMOGLOBIN 0.2 % (0.5-1.5); BG DEOXYHEMOGLOBIN 1.8 % (0.0-5.0); BG FRACTION INSPIRED OXYGEN 100; BG HCO3 ACT 23.5 mmol/L (22.0-26.0); BG METHEMOGLOBIN 0.1 % (0.0-1.5); BG OXYGEN SATURATION 98.2 % (92.0-98.5); BG OXYHEMOGLOBIN 97.9 % (94.0-97.0); BG PCO2 50.4 mmHg (35.0-45.0); BG PH 7.286 (7.350-7.450); BG PO2 173.2 mmHg (75.0-100.0); BG SAMPLE SITE RIGHT BRACHIAL; BG TOTAL HEMOGLOBIN 10.4 g/dL (12.0-18.0); BG VENT MODE MASK - NRB
[2022-07-29] MEDS: PHENYLEPHRINE 100 MG in DEXT 5% WATER 240 ML IV PRN (22:37)
[2022-07-30] VITALS (89 sets, daily range): BP systolic 52–155; BP diastolic 22–114
[2022-07-30] MEDS: DEXT 5%/LACTATED RINGERS 1,000 ML IV SCH ×2 (02:04→10:05)
[2022-07-30 04:47] LABS: HEMATOCRIT 28.4 % (36.0-48.0); HEMOGLOBIN 9.5 g/dL (12.0-16.0); MEAN CORPUSCULAR HEMOGLOBIN 26.3 pg (28.0-32.0); MEAN CORPUSCULAR VOLUME 79.2 fL (81.0-99.0); PLATELET 117 x1000/uL (130-400); RED BLOOD CELL COUNT 3.59 mill/uL (4.2-5.4); RED CELL DISTRIBUTION WIDTH 18.1 % (11.6-14.6)
[2022-07-30 04:57] LABS: CHLORIDE 115 mEq/L (98-107)
[2022-07-30 05:04] LABS: INR 1.1; PROTHROMBIN TIME 11.9 sec (9.6-11.0)
[2022-07-30 05:10] LABS: PHOSPHORUS 1.9 mg/dL (2.5-4.9)
[2022-07-30] MEDS: METHYLPREDNISOLONE SOD SUCC 125 MG/2 ML VIAL IV SCH ×3 (05:52→17:55)
[2022-07-30] MEDS: NYSTATIN 100,000 UNITS/ML 5ML UDC SSW SCH ×4 (05:52→23:55)
[2022-07-30] MEDS: SILDENAFIL CITRATE 20MG TABLET PO SCH ×3 (05:52→21:30)
[2022-07-30] MEDS: METRONIDAZOLE 500 MG PREMIX 100 ML IV SCH (05:52)
[2022-07-30] MEDS ORDERED: POTASSIUM PHOS,M-BASIC-D-BASIC 20 MMOL in DEXT 5% WATER 243.3333 ML IV NR (08:00)
[2022-07-30] MEDS ORDERED: NOREPINEPHRINE 8 MG in DEXTROSE 5% WATER 250 ML IV PRN (08:00)
[2022-07-30] MEDS ORDERED: NOREPINEPHRINE 8MG/250ML PMX 250 ML IV PRN (08:00)
[2022-07-30] MEDS: PROPOFOL 10MG/ML 100ML 100 ML IV PRN ×2 (08:04→23:56)
[2022-07-30 09:00] LABS: BG BASE EXCESS 4.7 mmol/L (-2.0-2.0); BG CARBOXYHEMOGLOBIN 0.2 % (0.5-1.5); BG DEOXYHEMOGLOBIN 1.4 % (0.0-5.0); BG FRACTION INSPIRED OXYGEN 100; BG HCO3 ACT 26.2 mmol/L (22.0-26.0); BG METHEMOGLOBIN 0.8 % (0.0-1.5); BG OXYGEN SATURATION 98.6 % (92.0-98.5); BG OXYHEMOGLOBIN 97.6 % (94.0-97.0); BG PCO2 28.3 mmHg (35.0-45.0); BG PH 7.585 (7.350-7.450); BG PO2 310.7 mmHg (75.0-100.0); BG SAMPLE SITE RIGHT RADIAL; BG TOTAL HEMOGLOBIN 9.8 g/dL (12.0-18.0); BG VENT MODE VENT - AC
[2022-07-30] MEDS ORDERED: MAGNESIUM 2 G PREMIX 50 ML IV NR (09:00)
[2022-07-30] MEDS: ENOXAPARIN 80MG/0.8ML SYR SUBCUT SCH (09:38)
[2022-07-30] MEDS: PANTOPRAZOLE SODIUM 40 MG/VIAL IV SCH (09:38)
[2022-07-30] MEDS: LEVOFLOXACIN 500MG PREMIX 100 ML IV SCH (11:00)
[2022-07-30] MEDS ORDERED: LIDOCAINE HCL/PF 1% 10 MG/ML 5ML VIAL ONE (11:02)
[2022-07-30] MEDS ORDERED: LORAZEPAM 2MG/ML CPJ IV PRN (14:30)
[2022-07-30] MEDS: PIPERACILLIN/TAZOBACTAM 3.375 G in DEXTROSE 5% WATER 50 ML IV SCH ×2 (15:16→21:32)
[2022-07-30] MEDS: VANCOMYCIN 750MG PREMIX 150 ML IV NR ×2 (15:43→21:32)
[2022-07-30] MEDS ORDERED: LEVETIRACETAM 1,000 MG in SODIUM CHLORIDE 0.9% 100 ML IV NR (16:00)
[2022-07-30 17:10] LABS: HLA CLASS 1 ANTIBODY Negative (Negative); IIb/IIIa ANTIBODY Negative (Negative); Ia/IIa ANTIBODY Negative (Negative); Ib/IX ANTIBODY Negative (Negative)
[2022-07-30] MEDS: WARFARIN SODIUM 2.5MG TABLET PO SCH (17:56)
[2022-07-30] MEDS: METHYLPREDNISOLONE SOD SUCC 40 MG/ML VIAL IV SCH (21:32)
[2022-07-30] MEDS: LEVETIRACETAM 500MG PREMIX 100 ML IV SCH (21:33)
[2022-07-30] MEDS ORDERED: MORPHINE SULFATE 4 MG/ML CPJ (NOT FOR IM USE) IV SCH (22:00)
[2022-07-31] VITALS (96 sets, daily range): BP systolic 78–144; BP diastolic 29–98
[2022-07-31 04:53] LABS: CHLORIDE 113 mEq/L (98-107)
[2022-07-31 04:59] LABS: BASOPHILS % 0.2 % (0.0-2.0); HEMATOCRIT. 25.6 % (36.0-48.0); HEMOGLOBIN. 8.3 g/dL (12.0-16.0); LYMPHOCYTES % 17.5 % (20.0-50.0); MEAN CORPUSCULAR VOLUME 79.8 fL (81.0-99.0); MEAN PLATELET VOLUME 9.9 fl (7.4-10.4); MONOCYTES % 5.9 % (2.0-8.0); NEUTROPHILS % 76.4 % (40.0-76.0); PLATELET 106 x1000/uL (130-400); RED CELL DISTRIBUTION WIDTH 18.3 % (11.6-14.6)
[2022-07-31 05:05] LABS: PHOSPHORUS 2.7 mg/dL (2.5-4.9)
[2022-07-31] MEDS: DEXT 5%/LACTATED RINGERS 1,000 ML IV SCH ×2 (05:43→14:58)
[2022-07-31] MEDS: METHYLPREDNISOLONE SOD SUCC 40 MG/ML VIAL IV SCH ×3 (05:44→22:18)
[2022-07-31] MEDS: PIPERACILLIN/TAZOBACTAM 3.375 G in DEXTROSE 5% WATER 50 ML IV SCH ×3 (05:44→22:18)
[2022-07-31] MEDS: NYSTATIN 100,000 UNITS/ML 5ML UDC SSW SCH ×3 (05:44→17:57)
[2022-07-31] MEDS: SILDENAFIL CITRATE 20MG TABLET PO SCH ×3 (05:44→22:19)
[2022-07-31] MEDS: VANCOMYCIN 750MG PREMIX 150 ML IV NR (05:45)
[2022-07-31 08:25] LABS: BG BASE EXCESS -0.1 mmol/L (-2.0-2.0); BG CARBOXYHEMOGLOBIN 0.3 % (0.5-1.5); BG HCO3 ACT 23.7 mmol/L (22.0-26.0); BG METHEMOGLOBIN 0.6 % (0.0-1.5); BG OXYHEMOGLOBIN 97.1 % (94.0-97.0); BG PCO2 34.7 mmHg (35.0-45.0); BG PH 7.452 (7.350-7.450); BG PO2 126.3 mmHg (75.0-100.0); BG SAMPLE SITE RIGHT RADIAL; BG TOTAL HEMOGLOBIN 8.5 g/dL (12.0-18.0); BG VENT MODE VENT - AC
[2022-07-31] MEDS: PANTOPRAZOLE SODIUM 40 MG/VIAL IV SCH (08:50)
[2022-07-31] MEDS: LEVETIRACETAM 500MG PREMIX 100 ML IV SCH ×2 (08:50→22:16)
[2022-07-31] MEDS ORDERED: PROPOFOL 10MG/ML 100ML 100 ML IV PRN (09:30)
[2022-07-31] MEDS ORDERED: GADOTERATE MEGLUMINE 5 MMOL/10 ML VIAL IV ONE (10:43)
[2022-07-31] MEDS: IPRATROPIUM/ALBUTEROL 0.5-3(2.5)MG/3ML NEB NEB PRN (12:12)
[2022-07-31 17:06] LABS: ANA HOMOGENEOUS PATTERN >1:1280 (.); ANA IFA Positive (.)
[2022-07-31] MEDS: WARFARIN SODIUM 2.5MG TABLET PO SCH (17:57)
[2022-07-31] MEDS ORDERED: ALBUMIN HUMAN 25GM/100ML (25%) IV NR (18:00)
[2022-08-01] VITALS (78 sets, daily range): BP systolic 69–143; BP diastolic 33–87
[2022-08-01] MEDS ORDERED: FUROSEMIDE 20MG/2ML VIAL IVP SCH
[2022-08-01] MEDS ORDERED: KCL 20MEQ/100ML PREMIX 100 ML IV SCH
[2022-08-01] MEDS: NYSTATIN 100,000 UNITS/ML 5ML UDC SSW SCH ×2 (00:03→05:08)
[2022-08-01] MEDS: PIPERACILLIN/TAZOBACTAM 3.375 G in DEXTROSE 5% WATER 50 ML IV SCH ×3 (05:08→21:43)
[2022-08-01] MEDS: SILDENAFIL CITRATE 20MG TABLET PO SCH ×3 (05:09→21:42)
[2022-08-01] MEDS: METHYLPREDNISOLONE SOD SUCC 40 MG/ML VIAL IV SCH ×3 (05:09→21:42)
[2022-08-01 06:29] LABS: CHLORIDE 114 mEq/L (98-107)
[2022-08-01] MEDS: DEXT 5%/LACTATED RINGERS 1,000 ML IV SCH ×2 (06:55→21:43)
[2022-08-01] MEDS: LEVETIRACETAM 500MG PREMIX 100 ML IV SCH ×2 (08:13→21:43)
[2022-08-01] MEDS: PANTOPRAZOLE SODIUM 40 MG/VIAL IV SCH (08:13)
[2022-08-01 09:14] LABS: BG BASE EXCESS 4.4 mmol/L (-2.0-2.0); BG CARBOXYHEMOGLOBIN 0.3 % (0.5-1.5); BG FRACTION INSPIRED OXYGEN 40; BG HCO3 ACT 28.6 mmol/L (22.0-26.0); BG METHEMOGLOBIN 0.4 % (0.0-1.5); BG OXYHEMOGLOBIN 97.3 % (94.0-97.0); BG PCO2 41.3 mmHg (35.0-45.0); BG PH 7.459 (7.350-7.450); BG PO2 143.1 mmHg (75.0-100.0); BG SAMPLE SITE RIGHT RADIAL; BG TOTAL HEMOGLOBIN 7.7 g/dL (12.0-18.0); BG VENT MODE VENT - AC
[2022-08-01] MEDS: PHENYLEPHRINE 100 MG in DEXT 5% WATER 240 ML IV PRN (10:01)
[2022-08-01] MEDS: VANCOMYCIN 750MG PREMIX 150 ML IV SCH (11:03)
[2022-08-01] MEDS ORDERED: PROPOFOL 10MG/ML 100ML 100 ML IV PRN (12:30)
[2022-08-01] MEDS ORDERED: NA PHOS,M-B/NA PHOS,DI-BA ENEMA 118ML PR NR (15:00)
[2022-08-01] MEDS: METOCLOPRAMIDE HCL 10MG/2ML VIAL IV SCH (17:29)
[2022-08-01] MEDS: WARFARIN SODIUM 2.5MG TABLET PO SCH (17:29)
[2022-08-01] MEDS ORDERED: VANCOMYCIN 750MG PREMIX 150 ML IV SCH (18:00)
[2022-08-01] MEDS ORDERED: POTASSIUM BICARB/CIT ACID 25 MEQ TABLET.EFF NG NR (22:00)
[2022-08-01] MEDS: LEVETIRACETAM 750 MG in SODIUM CHLORIDE 0.9% 100 ML IV SCH (23:19)
[2022-08-02] VITALS (76 sets, daily range): BP systolic 92–147; BP diastolic 39–112
[2022-08-02] MEDS: METOCLOPRAMIDE HCL 10MG/2ML VIAL IV SCH ×5 (00:42→23:14)
[2022-08-02] MEDS: METHYLPREDNISOLONE SOD SUCC 40 MG/ML VIAL IV SCH ×3 (05:27→21:03)
[2022-08-02] MEDS: SILDENAFIL CITRATE 20MG TABLET PO SCH ×3 (05:27→21:03)
[2022-08-02] MEDS: PIPERACILLIN/TAZOBACTAM 3.375 G in DEXTROSE 5% WATER 50 ML IV SCH ×3 (05:27→21:03)
[2022-08-02 05:47] LABS: HEMATOCRIT 23.2 % (36.0-48.0); HEMOGLOBIN 7.7 g/dL (12.0-16.0); MEAN CORPUSCULAR HEMOGLOBIN 27.5 pg (28.0-32.0); MEAN CORPUSCULAR VOLUME 82.4 fL (81.0-99.0); PLATELET 117 x1000/uL (130-400); RED BLOOD CELL COUNT 2.81 mill/uL (4.2-5.4)
[2022-08-02 05:54] LABS: CHLORIDE 115 mEq/L (98-107)
[2022-08-02 06:02] LABS: PHOSPHORUS 1.7 mg/dL (2.5-4.9)
[2022-08-02 08:23] LABS: BG BASE EXCESS 2.5 mmol/L (-2.0-2.0); BG CARBOXYHEMOGLOBIN 0.1 % (0.5-1.5); BG HCO3 ACT 25.8 mmol/L (22.0-26.0); BG METHEMOGLOBIN 0.4 % (0.0-1.5); BG OXYHEMOGLOBIN 96.5 % (94.0-97.0); BG PCO2 34.1 mmHg (35.0-45.0); BG PH 7.496 (7.350-7.450); BG PO2 93.8 mmHg (75.0-100.0); BG SAMPLE SITE RIGHT RADIAL; BG TOTAL HEMOGLOBIN 8.3 g/dL (12.0-18.0); BG VENT MODE VENT - AC
[2022-08-02] MEDS: PANTOPRAZOLE SODIUM 40 MG/VIAL IV SCH (08:57)
[2022-08-02] MEDS: DEXT 5%/LACTATED RINGERS 1,000 ML IV SCH (09:57)
[2022-08-02] MEDS: LEVETIRACETAM 750 MG in SODIUM CHLORIDE 0.9% 100 ML IV SCH ×2 (09:57→20:42)
[2022-08-02] MEDS ORDERED: POTASSIUM PHOS,M-BASIC-D-BASIC 20 MMOL in DEXT 5% WATER 243.3333 ML IV NR (11:30)
[2022-08-02] MEDS: VANCOMYCIN 750MG PREMIX 150 ML IV SCH (11:43)
[2022-08-02] MEDS: ACETAMINOPHEN 650MG/20.3ML UDC NG PRN ×2 (15:29→21:36)
[2022-08-02] MEDS: WARFARIN SODIUM 2.5MG TABLET PO SCH (17:13)
[2022-08-02] MEDS ORDERED: ALBUMIN HUMAN 25GM/100ML (25%) IV SCH (18:00)
[2022-08-02] MEDS ORDERED: FUROSEMIDE 20MG/2ML VIAL IVP SCH (23:15)
[2022-08-03] VITALS (95 sets, daily range): BP systolic 99–164; BP diastolic 49–123
[2022-08-03] MEDS ORDERED: FUROSEMIDE 20MG/2ML VIAL IVP SCH
[2022-08-03] MEDS ORDERED: KCL 20MEQ/100ML PREMIX 100 ML IV SCH
[2022-08-03 05:20] LABS: CHLORIDE 112 mEq/L (98-107)
[2022-08-03 05:21] LABS: HEMATOCRIT 22.3 % (36.0-48.0); HEMOGLOBIN 7.4 g/dL (12.0-16.0); MEAN CORPUSCULAR HEMOGLOBIN 28.4 pg (28.0-32.0); MEAN CORPUSCULAR VOLUME 85.4 fL (81.0-99.0); PLATELET 129 x1000/uL (130-400); RED BLOOD CELL COUNT 2.61 mill/uL (4.2-5.4); RED CELL DISTRIBUTION WIDTH 17.6 % (11.6-14.6)
[2022-08-03 05:24] LABS: PHOSPHORUS 2.1 mg/dL (2.5-4.9)
[2022-08-03] MEDS: PIPERACILLIN/TAZOBACTAM 3.375 G in DEXTROSE 5% WATER 50 ML IV SCH ×3 (05:43→22:22)
[2022-08-03] MEDS: SILDENAFIL CITRATE 20MG TABLET PO SCH ×3 (05:44→21:00)
[2022-08-03] MEDS: METHYLPREDNISOLONE SOD SUCC 40 MG/ML VIAL IV SCH ×3 (05:44→21:00)
[2022-08-03] MEDS: METOCLOPRAMIDE HCL 10MG/2ML VIAL IV SCH ×4 (05:44→23:02)
[2022-08-03] MEDS: PANTOPRAZOLE SODIUM 40 MG/VIAL IV SCH (08:32)
[2022-08-03] MEDS: DEXT 5%/LACTATED RINGERS 1,000 ML IV SCH ×2 (08:32→21:50)
[2022-08-03] MEDS: LEVETIRACETAM 750 MG in SODIUM CHLORIDE 0.9% 100 ML IV SCH ×2 (08:49→21:00)
[2022-08-03] MEDS ORDERED: BISACODYL 5MG TABLET PO PRN (10:45)
[2022-08-03] MEDS: VANCOMYCIN 750MG PREMIX 150 ML IV SCH (11:05)
[2022-08-03] MEDS: WARFARIN SODIUM 2.5MG TABLET PO SCH (17:06)
[2022-08-04] VITALS (92 sets, daily range): BP systolic 90–160; BP diastolic 36–129
[2022-08-04] MEDS: METOCLOPRAMIDE HCL 10MG/2ML VIAL IV SCH ×3 (05:39→17:54)
[2022-08-04] MEDS: METHYLPREDNISOLONE SOD SUCC 40 MG/ML VIAL IV SCH ×3 (05:39→21:23)
[2022-08-04] MEDS: PIPERACILLIN/TAZOBACTAM 3.375 G in DEXTROSE 5% WATER 50 ML IV SCH ×3 (05:40→21:23)
[2022-08-04] MEDS: SILDENAFIL CITRATE 20MG TABLET PO SCH ×3 (05:40→21:23)
[2022-08-04 06:34] LABS: HEMATOCRIT 22.8 % (36.0-48.0); HEMOGLOBIN 7.8 g/dL (12.0-16.0); MEAN CORPUSCULAR HEMOGLOBIN 29.2 pg (28.0-32.0); PLATELET 173 x1000/uL (130-400); RED BLOOD CELL COUNT 2.68 mill/uL (4.2-5.4); RED CELL DISTRIBUTION WIDTH 17.4 % (11.6-14.6)
[2022-08-04] MEDS: PANTOPRAZOLE SODIUM 40 MG/VIAL IV SCH (08:29)
[2022-08-04] MEDS: LEVETIRACETAM 750 MG in SODIUM CHLORIDE 0.9% 100 ML IV SCH (08:29)
[2022-08-04] MEDS: DEXT 5%/LACTATED RINGERS 1,000 ML IV SCH (08:30)
[2022-08-04 13:39] LABS: CHLORIDE 110 mEq/L (98-107)
[2022-08-04] MEDS ORDERED: GADOTERATE MEGLUMINE 5 MMOL/10 ML VIAL IV ONE (15:47)
[2022-08-04] MEDS: WARFARIN SODIUM 2.5MG TABLET PO SCH (17:54)
[2022-08-04] MEDS ORDERED: LEVETIRACETAM 1000MG PREMIX 100 ML IV NR (20:00)
[2022-08-05] VITALS (94 sets, daily range): BP systolic 87–141; BP diastolic 39–111
[2022-08-05] MEDS: DEXT 5%/LACTATED RINGERS 1,000 ML IV SCH ×3 (00:51→14:28)
[2022-08-05] MEDS: METOCLOPRAMIDE HCL 10MG/2ML VIAL IV SCH ×4 (00:51→17:21)
[2022-08-05 06:02] LABS: HEMATOCRIT 21.4 % (36.0-48.0); HEMOGLOBIN 7.3 g/dL (12.0-16.0); MEAN CORPUSCULAR HEMOGLOBIN 29.5 pg (28.0-32.0); MEAN CORPUSCULAR VOLUME 86.7 fL (81.0-99.0); PLATELET 181 x1000/uL (130-400); RED BLOOD CELL COUNT 2.47 mill/uL (4.2-5.4); RED CELL DISTRIBUTION WIDTH 18.2 % (11.6-14.6)
[2022-08-05] MEDS: METHYLPREDNISOLONE SOD SUCC 40 MG/ML VIAL IV SCH ×3 (06:07→21:32)
[2022-08-05] MEDS: SILDENAFIL CITRATE 20MG TABLET PO SCH ×3 (06:07→21:32)
[2022-08-05] MEDS: PIPERACILLIN/TAZOBACTAM 3.375 G in DEXTROSE 5% WATER 50 ML IV SCH ×3 (06:08→21:32)
[2022-08-05] MEDS: LEVETIRACETAM 1000MG PREMIX 100 ML IV SCH ×2 (08:36→21:33)
[2022-08-05] MEDS: PANTOPRAZOLE SODIUM 40 MG/VIAL IV SCH (08:36)
[2022-08-05 10:00] LABS: CHLORIDE 111 mEq/L (98-107)
[2022-08-05 10:08] LABS: PHOSPHORUS 2.2 mg/dL (2.5-4.9)
[2022-08-05] MEDS: WARFARIN SODIUM 2.5MG TABLET PO SCH (17:21)
[2022-08-06] VITALS (87 sets, daily range): BP systolic 75–132; BP diastolic 44–82
[2022-08-06] MEDS: METOCLOPRAMIDE HCL 10MG/2ML VIAL IV SCH ×5 (00:56→23:34)
[2022-08-06] MEDS: PIPERACILLIN/TAZOBACTAM 3.375 G in DEXTROSE 5% WATER 50 ML IV SCH ×3 (05:40→21:15)
[2022-08-06] MEDS: METHYLPREDNISOLONE SOD SUCC 40 MG/ML VIAL IV SCH ×3 (05:40→21:15)
[2022-08-06] MEDS: DEXT 5%/LACTATED RINGERS 1,000 ML IV SCH ×2 (05:44→21:22)
[2022-08-06 06:02] LABS: HEMATOCRIT 21.2 % (36.0-48.0); HEMOGLOBIN 7.3 g/dL (12.0-16.0); MEAN CORPUSCULAR HEMOGLOBIN 30.5 pg (28.0-32.0); MEAN CORPUSCULAR VOLUME 88.8 fL (81.0-99.0); PLATELET 203 x1000/uL (130-400); RED BLOOD CELL COUNT 2.38 mill/uL (4.2-5.4); RED CELL DISTRIBUTION WIDTH 17.8 % (11.6-14.6)
[2022-08-06] MEDS: SILDENAFIL CITRATE 20MG TABLET PO SCH ×3 (06:09→21:15)
[2022-08-06 06:36] LABS: CHLORIDE 111 mEq/L (98-107); PHOSPHORUS 2.2 mg/dL (2.5-4.9)
[2022-08-06] MEDS: PANTOPRAZOLE SODIUM 40 MG/VIAL IV SCH (08:23)
[2022-08-06] MEDS: LEVETIRACETAM 1000MG PREMIX 100 ML IV SCH (08:23)
[2022-08-06 10:21] LABS: BG BASE EXCESS 3.5 mmol/L (-2.0-2.0); BG CARBOXYHEMOGLOBIN 1.6 % (0.5-1.5); BG DEOXYHEMOGLOBIN 1.3 % (0.0-5.0); BG FRACTION INSPIRED OXYGEN 35; BG HCO3 ACT 27.3 mmol/L (22.0-26.0); BG METHEMOGLOBIN 0.4 % (0.0-1.5); BG OXYGEN SATURATION 98.7 % (92.0-98.5); BG OXYHEMOGLOBIN 96.7 % (94.0-97.0); BG PCO2 37.4 mmHg (35.0-45.0); BG PH 7.481 (7.350-7.450); BG PO2 129.7 mmHg (75.0-100.0); BG SAMPLE SITE RIGHT RADIAL; BG VENT MODE VENT - CPAP
[2022-08-06] MEDS: WARFARIN SODIUM 2.5MG TABLET PO SCH (18:36)
[2022-08-06] MEDS: ACETAMINOPHEN 650MG/20.3ML UDC NG PRN ×3 (19:11→20:56)
[2022-08-06] MEDS ORDERED: ALBUMIN HUMAN 25GM/100ML (25%) IV NR (20:15)
[2022-08-06] MEDS: LEVETIRACETAM 1,000 MG in SODIUM CHLORIDE 0.9% 100 ML IV SCH (22:25)
[2022-08-07] VITALS (35 sets, daily range): BP systolic 96–132; BP diastolic 52–79
[2022-08-07] MEDS ORDERED: KCL 20MEQ/100ML PREMIX 100 ML IV NR
[2022-08-07] MEDS ORDERED: FUROSEMIDE 40MG/4ML VIAL IVP NR
[2022-08-07 04:38] LABS: MEAN CORPUSCULAR HEMOGLOBIN 31.7 pg (28.0-32.0); MEAN CORPUSCULAR VOLUME 90.9 fL (81.0-99.0); PLATELET 194 x1000/uL (130-400); RED BLOOD CELL COUNT 2.04 mill/uL (4.2-5.4); RED CELL DISTRIBUTION WIDTH 17.7 % (11.6-14.6)
[2022-08-07 04:59] LABS: CHLORIDE 112 mEq/L (98-107); PHOSPHORUS 2.2 mg/dL (2.5-4.9)
[2022-08-07 05:00] LABS: HEMATOCRIT 18.6 % (36.0-48.0); HEMOGLOBIN 6.5 g/dL (12.0-16.0)
[2022-08-07] MEDS: METOCLOPRAMIDE HCL 10MG/2ML VIAL IV SCH ×4 (05:41→23:08)
[2022-08-07] MEDS: SILDENAFIL CITRATE 20MG TABLET PO SCH ×3 (05:41→21:02)
[2022-08-07] MEDS: METHYLPREDNISOLONE SOD SUCC 40 MG/ML VIAL IV SCH ×3 (05:43→21:01)
[2022-08-07] MEDS: PANTOPRAZOLE SODIUM 40 MG/VIAL IV SCH (08:15)
[2022-08-07] MEDS: LEVETIRACETAM 1,000 MG in SODIUM CHLORIDE 0.9% 100 ML IV SCH ×2 (09:14→21:01)
[2022-08-07 10:56] LABS: BG BASE EXCESS 4.6 mmol/L (-2.0-2.0); BG CARBOXYHEMOGLOBIN 0.7 % (0.5-1.5); BG DEOXYHEMOGLOBIN 1.9 % (0.0-5.0); BG FRACTION INSPIRED OXYGEN 40; BG HCO3 ACT 28.8 mmol/L (22.0-26.0); BG METHEMOGLOBIN 0.6 % (0.0-1.5); BG OXYGEN SATURATION 98.1 % (92.0-98.5); BG OXYHEMOGLOBIN 96.8 % (94.0-97.0); BG PCO2 41.3 mmHg (35.0-45.0); BG PH 7.462 (7.350-7.450); BG PO2 120.6 mmHg (75.0-100.0); BG SAMPLE SITE RIGHT RADIAL; BG TOTAL HEMOGLOBIN 6.8 g/dL (12.0-18.0); BG VENT MODE VENT - CPAP
[2022-08-07] MEDS: DEXT 5%/LACTATED RINGERS 1,000 ML IV SCH ×2 (11:19→23:08)
[2022-08-07] MEDS: WARFARIN SODIUM 2.5MG TABLET PO SCH (17:58)
[2022-08-07 19:11] LABS: ANTI-MYELOPEROXIDASE AB < 0.2 units (0.0-0.9); ANTI-PROTEINASE 3 ABS < 0.2 units (0.0-0.9)
[2022-08-07] MEDS: ACETAMINOPHEN 650MG/20.3ML UDC NG PRN (21:01)
[2022-08-07] MEDS: ONDANSETRON HCL 4MG/2ML INJ IV PRN (21:02)
[2022-08-08] VITALS (64 sets, daily range): BP systolic 90–143; BP diastolic 23–91
[2022-08-08] MEDS: METHYLPREDNISOLONE SOD SUCC 40 MG/ML VIAL IV SCH ×3 (05:09→21:20)
[2022-08-08] MEDS: SILDENAFIL CITRATE 20MG TABLET PO SCH ×3 (05:10→21:20)
[2022-08-08] MEDS: METOCLOPRAMIDE HCL 10MG/2ML VIAL IV SCH ×4 (05:10→23:17)
[2022-08-08 06:03] LABS: HEMATOCRIT 29.1 % (36.0-48.0); HEMOGLOBIN 10.1 g/dL (12.0-16.0); MEAN CORPUSCULAR HEMOGLOBIN 31.5 pg (28.0-32.0); MEAN CORPUSCULAR VOLUME 90.9 fL (81.0-99.0); PLATELET 191 x1000/uL (130-400); RED BLOOD CELL COUNT 3.19 mill/uL (4.2-5.4); RED CELL DISTRIBUTION WIDTH 19.4 % (11.6-14.6)
[2022-08-08 06:20] LABS: CHLORIDE 111 mEq/L (98-107)
[2022-08-08 06:28] LABS: PHOSPHORUS 2.3 mg/dL (2.5-4.9)
[2022-08-08] MEDS: LEVETIRACETAM 1,000 MG in SODIUM CHLORIDE 0.9% 100 ML IV SCH (08:18)
[2022-08-08] MEDS: PANTOPRAZOLE SODIUM 40 MG/VIAL IV SCH (08:18)
[2022-08-08] MEDS: DEXT 5%/LACTATED RINGERS 1,000 ML IV SCH (11:58)
[2022-08-08 13:07] LABS: ATYPICAL P-ANCA <1:20 titer (Neg:<1:20); CYTOPLASMIC C-ANCA <1:20 titer (Neg:<1:20); PERINUCLEAR P-ANCA <1:20 titer (Neg:<1:20)
[2022-08-08 17:07] LABS: ANA IFA Positive (.)
[2022-08-08] MEDS: WARFARIN SODIUM 2.5MG TABLET PO SCH (18:28)
[2022-08-08] MEDS: LEVETIRACETAM 1,250 MG in SODIUM CHLORIDE 0.9% 100 ML IV SCH (20:40)
[2022-08-09] VITALS (89 sets, daily range): BP systolic 86–193; BP diastolic 32–137
[2022-08-09] MEDS ORDERED: SODIUM CHLORIDE 0.9% 500 ML IV ONE (00:15)
[2022-08-09] MEDS: DEXT 5%/LACTATED RINGERS 1,000 ML IV SCH ×2 (02:39→14:28)
[2022-08-09] MEDS: METHYLPREDNISOLONE SOD SUCC 40 MG/ML VIAL IV SCH ×3 (05:04→21:39)
[2022-08-09] MEDS: METOCLOPRAMIDE HCL 10MG/2ML VIAL IV SCH ×3 (05:04→18:24)
[2022-08-09] MEDS: SILDENAFIL CITRATE 20MG TABLET PO SCH ×3 (05:04→21:39)
[2022-08-09 09:29] LABS: BG BASE EXCESS 1.7 mmol/L (-2.0-2.0); BG CARBOXYHEMOGLOBIN 0.9 % (0.5-1.5); BG DEOXYHEMOGLOBIN 5.3 % (0.0-5.0); BG FRACTION INSPIRED OXYGEN 24; BG METHEMOGLOBIN 0.6 % (0.0-1.5); BG OXYGEN SATURATION 94.6 % (92.0-98.5); BG OXYHEMOGLOBIN 93.2 % (94.0-97.0); BG PCO2 34.3 mmHg (35.0-45.0); BG PO2 67.7 mmHg (75.0-100.0); BG SAMPLE SITE RIGHT RADIAL; BG TOTAL HEMOGLOBIN 10.8 g/dL (12.0-18.0); BG VENT MODE NASAL CANNULA
[2022-08-09] MEDS: PANTOPRAZOLE SODIUM 40 MG/VIAL IV SCH (09:35)
[2022-08-09] MEDS: LEVETIRACETAM 1,250 MG in SODIUM CHLORIDE 0.9% 100 ML IV SCH ×2 (09:35→21:38)
[2022-08-09] MEDS: IPRATROPIUM/ALBUTEROL 0.5-3(2.5)MG/3ML NEB NEB PRN ×3 (12:20→20:21)
[2022-08-09] MEDS: ACETAMINOPHEN 650MG/20.3ML UDC NG PRN (14:33)
[2022-08-09] MEDS: WARFARIN SODIUM 2.5MG TABLET PO SCH (18:24)
[2022-08-09] MEDS ORDERED: SODIUM PHOS,M-BASIC-D-BASIC 10 MM in DEXT 5% WATER 246.6667 ML IV ONE (19:00)
[2022-08-09] MEDS ORDERED: POTASSIUM PHOS M BASIC D BASIC IV NR (20:30)
[2022-08-09] MEDS ORDERED: WATER IV NR (20:30)
[2022-08-09] MEDS ORDERED: DEXTROSE 5% IV NR (20:30)
[2022-08-10] VITALS (34 sets, daily range): BP systolic 99–172; BP diastolic 33–117
[2022-08-10] MEDS: METOCLOPRAMIDE HCL 10MG/2ML VIAL IV SCH ×4 (00:12→18:14)
[2022-08-10 04:48] LABS: HEMATOCRIT. 26.2 % (36.0-48.0); HEMOGLOBIN. 9.2 g/dL (12.0-16.0); MEAN CORPUSCULAR HEMOGLOBIN 32.7 pg (28.0-32.0); MEAN CORPUSCULAR VOLUME 93.2 fL (81.0-99.0); MEAN PLATELET VOLUME 8.1 fl (7.4-10.4); PLATELET 195 x1000/uL (130-400); RED BLOOD CELL COUNT 2.81 mill/uL (4.2-5.4); RED CELL DISTRIBUTION WIDTH 20.7 % (11.6-14.6)
[2022-08-10 04:54] LABS: CHLORIDE 113 mEq/L (98-107)
[2022-08-10] MEDS: METHYLPREDNISOLONE SOD SUCC 40 MG/ML VIAL IV SCH ×3 (06:17→20:38)
[2022-08-10] MEDS: SILDENAFIL CITRATE 20MG TABLET PO SCH ×3 (06:18→21:56)
[2022-08-10] MEDS: DEXT 5%/LACTATED RINGERS 1,000 ML IV SCH ×2 (06:18→18:15)
[2022-08-10] MEDS: ACETAMINOPHEN 650MG/20.3ML UDC NG PRN ×2 (06:19→20:38)
[2022-08-10] MEDS: PANTOPRAZOLE SODIUM 40 MG/VIAL IV SCH (08:33)
[2022-08-10] MEDS: LEVETIRACETAM 1,250 MG in SODIUM CHLORIDE 0.9% 100 ML IV SCH ×2 (08:33→21:57)
[2022-08-10 08:36] LABS: BG BASE EXCESS 5.6 mmol/L (-2.0-2.0); BG CARBOXYHEMOGLOBIN 0.2 % (0.5-1.5); BG DEOXYHEMOGLOBIN 2.6 % (0.0-5.0); BG FRACTION INSPIRED OXYGEN 32; BG HCO3 ACT 29.2 mmol/L (22.0-26.0); BG METHEMOGLOBIN 0.4 % (0.0-1.5); BG OXYGEN SATURATION 97.4 % (92.0-98.5); BG OXYHEMOGLOBIN 96.8 % (94.0-97.0); BG PCO2 38.1 mmHg (35.0-45.0); BG PH 7.502 (7.350-7.450); BG PO2 108.5 mmHg (75.0-100.0); BG SAMPLE SITE RIGHT RADIAL; BG TOTAL HEMOGLOBIN 8.5 g/dL (12.0-18.0); BG VENT MODE NASAL CANNULA
[2022-08-10 12:51] LABS: PLATELET ESTIMATE NORMAL
[2022-08-10] MEDS: IRON SUCROSE COMPLEX 100 MG/5 ML ML IV SCH (14:58)
[2022-08-10] MEDS ORDERED: DIATR MEGLU/DIATRIZOATE SOLN 30ML PO SCH (15:00)
[2022-08-10] MEDS: WARFARIN SODIUM 2.5MG TABLET PO SCH (18:15)
[2022-08-11] VITALS (28 sets, daily range): BP systolic 103–166; BP diastolic 35–130
[2022-08-11] MEDS: METOCLOPRAMIDE HCL 10MG/2ML VIAL IV SCH ×4 (00:18→18:18)
[2022-08-11 05:45] LABS: HEMATOCRIT 27.1 % (36.0-48.0); HEMOGLOBIN 9.6 g/dL (12.0-16.0); MEAN CORPUSCULAR HEMOGLOBIN 33.9 pg (28.0-32.0); PLATELET 203 x1000/uL (130-400); RED BLOOD CELL COUNT 2.83 mill/uL (4.2-5.4); RED CELL DISTRIBUTION WIDTH 21.3 % (11.6-14.6)
[2022-08-11] MEDS: METHYLPREDNISOLONE SOD SUCC 40 MG/ML VIAL IV SCH ×2 (05:58→18:18)
[2022-08-11] MEDS: SILDENAFIL CITRATE 20MG TABLET PO SCH ×3 (05:59→21:54)
[2022-08-11] MEDS: DEXT 5%/LACTATED RINGERS 1,000 ML IV SCH ×2 (06:00→21:01)
[2022-08-11 06:16] LABS: CHLORIDE 112 mEq/L (98-107)
[2022-08-11 06:26] LABS: CREATINE KINASE 147 IU/L (26-192); PHOSPHORUS 2.6 mg/dL (2.5-4.9)
[2022-08-11 06:39] LABS: HEPATITIS B SURFACE ANTIGEN NEGATIVE
[2022-08-11 08:41] LABS: BG BASE EXCESS 3.8 mmol/L (-2.0-2.0); BG CARBOXYHEMOGLOBIN 0.1 % (0.5-1.5); BG DEOXYHEMOGLOBIN 5.8 % (0.0-5.0); BG FRACTION INSPIRED OXYGEN 24; BG HCO3 ACT 26.8 mmol/L (22.0-26.0); BG METHEMOGLOBIN 0.3 % (0.0-1.5); BG OXYGEN SATURATION 94.2 % (92.0-98.5); BG OXYHEMOGLOBIN 93.8 % (94.0-97.0); BG PCO2 33.8 mmHg (35.0-45.0); BG PH 7.517 (7.350-7.450); BG PO2 64.2 mmHg (75.0-100.0); BG SAMPLE SITE RIGHT RADIAL; BG TOTAL HEMOGLOBIN 8.9 g/dL (12.0-18.0); BG VENT MODE NASAL CANNULA
[2022-08-11] MEDS: LEVETIRACETAM 1,250 MG in SODIUM CHLORIDE 0.9% 100 ML IV SCH ×2 (08:54→21:01)
[2022-08-11] MEDS: PANTOPRAZOLE SODIUM 40 MG/VIAL IV SCH (08:54)
[2022-08-11] MEDS: AZATHIOPRINE 50MG TABLET PO SCH ×2 (08:55→17:00)
[2022-08-11] MEDS: IRON SUCROSE COMPLEX 100 MG/5 ML ML IV SCH (15:31)
[2022-08-11] MEDS: WARFARIN SODIUM 2.5MG TABLET PO SCH (18:18)
[2022-08-12] VITALS (36 sets, daily range): BP systolic 101–170; BP diastolic 33–108
[2022-08-12] MEDS: METOCLOPRAMIDE HCL 10MG/2ML VIAL IV SCH ×4 (00:06→17:48)
[2022-08-12] MEDS: SILDENAFIL CITRATE 20MG TABLET PO SCH ×3 (05:10→21:02)
[2022-08-12] MEDS: METHYLPREDNISOLONE SOD SUCC 40 MG/ML VIAL IV SCH ×2 (05:10→17:49)
[2022-08-12 07:00] LABS: BASOPHILS % 0.2 % (0.0-2.0); EOSINOPHILS % 0.4 % (0.0-5.0); HEMATOCRIT. 25.9 % (36.0-48.0); LYMPHOCYTES % 13.1 % (20.0-50.0); MEAN CORPUSCULAR HEMOGLOBIN 32.7 pg (28.0-32.0); MEAN CORPUSCULAR VOLUME 93.7 fL (81.0-99.0); MEAN PLATELET VOLUME 8.3 fl (7.4-10.4); MONOCYTES % 5.7 % (2.0-8.0); NEUTROPHILS % 80.6 % (40.0-76.0); PLATELET 218 x1000/uL (130-400); RED BLOOD CELL COUNT 2.76 mill/uL (4.2-5.4); RED CELL DISTRIBUTION WIDTH 20.9 % (11.6-14.6)
[2022-08-12 07:20] LABS: CHLORIDE 113 mEq/L (98-107)
[2022-08-12 08:29] LABS: BG BASE EXCESS 2.2 mmol/L (-2.0-2.0); BG CARBOXYHEMOGLOBIN 0.3 % (0.5-1.5); BG HCO3 ACT 25.2 mmol/L (22.0-26.0); BG METHEMOGLOBIN 0.3 % (0.0-1.5); BG OXYGEN SATURATION 90.9 % (92.0-98.5); BG OXYHEMOGLOBIN 90.4 % (94.0-97.0); BG PCO2 32.9 mmHg (35.0-45.0); BG PH 7.502 (7.350-7.450); BG PO2 55.5 mmHg (75.0-100.0); BG SAMPLE SITE RIGHT RADIAL; BG TOTAL HEMOGLOBIN 8.8 g/dL (12.0-18.0); BG VENT MODE NASAL CANNULA
[2022-08-12] MEDS: ACETAMINOPHEN 650MG/20.3ML UDC NG PRN ×3 (08:39→21:21)
[2022-08-12] MEDS: AZATHIOPRINE 50MG TABLET PO SCH ×2 (09:00→16:42)
[2022-08-12] MEDS: PANTOPRAZOLE SODIUM 40 MG/VIAL IV SCH (09:28)
[2022-08-12] MEDS: LEVETIRACETAM 1,250 MG in SODIUM CHLORIDE 0.9% 100 ML IV SCH ×2 (09:28→21:02)
[2022-08-12] MEDS ORDERED: FUROSEMIDE 40MG/4ML VIAL IVP SCH (12:15)
[2022-08-12] MEDS ORDERED: POTASSIUM CHLORIDE 20MEQ/PACKET PO SCH (12:15)
[2022-08-12] MEDS ORDERED: ALBUMIN HUMAN 25GM/100ML (25%) IV SCH (12:15)
[2022-08-12] MEDS: DEXT 5%/LACTATED RINGERS 1,000 ML IV SCH (12:47)
[2022-08-12] MEDS: IRON SUCROSE COMPLEX 100 MG/5 ML ML IV SCH (16:26)
[2022-08-12] MEDS: WARFARIN SODIUM 2.5MG TABLET PO SCH (17:50)
[2022-08-13] VITALS (55 sets, daily range): BP systolic 103–177; BP diastolic 41–125
[2022-08-13] MEDS: METOCLOPRAMIDE HCL 10MG/2ML VIAL IV SCH ×4 (00:13→18:11)
[2022-08-13 04:59] LABS: CHLORIDE 112 mEq/L (98-107)
[2022-08-13 05:29] LABS: BASOPHILS % 0.1 % (0.0-2.0); HEMATOCRIT. 23.9 % (36.0-48.0); HEMOGLOBIN. 8.2 g/dL (12.0-16.0); LYMPHOCYTES % 15.2 % (20.0-50.0); MEAN CORPUSCULAR HEMOGLOBIN 32.5 pg (28.0-32.0); MEAN CORPUSCULAR VOLUME 94.2 fL (81.0-99.0); MEAN PLATELET VOLUME 8.2 fl (7.4-10.4); NEUTROPHILS % 78.7 % (40.0-76.0); PLATELET 227 x1000/uL (130-400); RED BLOOD CELL COUNT 2.54 mill/uL (4.2-5.4); RED CELL DISTRIBUTION WIDTH 20.8 % (11.6-14.6)
[2022-08-13] MEDS: METHYLPREDNISOLONE SOD SUCC 40 MG/ML VIAL IV SCH ×2 (05:52→18:11)
[2022-08-13] MEDS: SILDENAFIL CITRATE 20MG TABLET PO SCH ×3 (05:52→22:39)
[2022-08-13 07:59] LABS: BG BASE EXCESS 3.4 mmol/L (-2.0-2.0); BG CARBOXYHEMOGLOBIN 0.3 % (0.5-1.5); BG DEOXYHEMOGLOBIN 3.6 % (0.0-5.0); BG FRACTION INSPIRED OXYGEN 100; BG HCO3 ACT 28.2 mmol/L (22.0-26.0); BG METHEMOGLOBIN 0.4 % (0.0-1.5); BG OXYGEN SATURATION 96.4 % (92.0-98.5); BG OXYHEMOGLOBIN 95.7 % (94.0-97.0); BG PCO2 44.1 mmHg (35.0-45.0); BG PH 7.424 (7.350-7.450); BG PO2 85.5 mmHg (75.0-100.0); BG SAMPLE SITE RIGHT RADIAL; BG TOTAL HEMOGLOBIN 9.1 g/dL (12.0-18.0); BG VENT MODE MASK - NRB
[2022-08-13] MEDS ORDERED: GLYCOPYRROLATE 0.2MG/ML VIAL 5ML IV PRN (08:00)
[2022-08-13] MEDS ORDERED: IPRATROPIUM BROMIDE (0.02%) 0.5MG/2.5ML NEB HHN PRN (08:30)
[2022-08-13] MEDS: IPRATROPIUM BROMIDE (0.02%) 0.5MG/2.5ML NEB HHN SCH ×4 (08:35→20:18)
[2022-08-13] MEDS: AZATHIOPRINE 50MG TABLET PO SCH ×2 (09:00→18:11)
[2022-08-13 09:07] LABS: ALDOLASE 11.8 U/L (3.3-10.3)
[2022-08-13] MEDS: DEXT 5%/LACTATED RINGERS 1,000 ML IV SCH (09:13)
[2022-08-13] MEDS: LEVETIRACETAM 1,250 MG in SODIUM CHLORIDE 0.9% 100 ML IV SCH ×2 (10:00→20:45)
[2022-08-13] MEDS: SCOPOLAMINE HYDROBROMIDE PATCH 72HR TD SCH (10:00)
[2022-08-13] MEDS: PANTOPRAZOLE SODIUM 40 MG/VIAL IV SCH (10:00)
[2022-08-13] MEDS: ACETAMINOPHEN 650MG/20.3ML UDC NG PRN (12:44)
[2022-08-13] MEDS ORDERED: METOPROLOL TARTRATE 50MG TABLET NG NR (13:45)
[2022-08-13] MEDS: PIPERACILLIN/TAZOBACTAM 3.375 G in DEXTROSE 5% WATER 50 ML IV SCH ×2 (18:10→22:39)
[2022-08-13] MEDS: VANCOMYCIN 1G PREMIX 200 ML IV SCH (18:11)
[2022-08-13] MEDS ORDERED: FUROSEMIDE 40MG/4ML VIAL IVP NR (20:00)
[2022-08-13] MEDS: WARFARIN SODIUM 2.5MG TABLET PO SCH (20:44)
[2022-08-13] MEDS ORDERED: PIPERACILLIN/TAZOBACTAM 3.375 G in DEXTROSE 5% WATER 50 ML IV SCH (22:00)
[2022-08-14] VITALS (47 sets, daily range): BP systolic 82–131; BP diastolic 35–92
[2022-08-14] MEDS: IPRATROPIUM BROMIDE (0.02%) 0.5MG/2.5ML NEB HHN SCH ×6 (00:20→21:09)
[2022-08-14] MEDS: DEXT 5%/LACTATED RINGERS 1,000 ML IV SCH ×2 (04:09→15:52)
[2022-08-14] MEDS: PIPERACILLIN/TAZOBACTAM 3.375 G in DEXTROSE 5% WATER 50 ML IV SCH ×3 (05:38→21:29)
[2022-08-14] MEDS: METHYLPREDNISOLONE SOD SUCC 40 MG/ML VIAL IV SCH ×2 (05:38→17:24)
[2022-08-14] MEDS: METOCLOPRAMIDE HCL 10MG/2ML VIAL IV SCH ×4 (05:38→17:24)
[2022-08-14] MEDS: SILDENAFIL CITRATE 20MG TABLET PO SCH ×3 (05:39→21:35)
[2022-08-14 06:48] LABS: HEMOGLOBIN. 7.4 g/dL (12.0-16.0); MEAN CORPUSCULAR HEMOGLOBIN 31.3 pg (28.0-32.0); MEAN CORPUSCULAR VOLUME 93.4 fL (81.0-99.0); MEAN PLATELET VOLUME 8.2 fl (7.4-10.4); PLATELET 213 x1000/uL (130-400); RED BLOOD CELL COUNT 2.35 mill/uL (4.2-5.4)
[2022-08-14 07:02] LABS: CHLORIDE 112 mEq/L (98-107)
[2022-08-14] MEDS: METOPROLOL TARTRATE 25MG TABLET NG PRN (07:35)
[2022-08-14] MEDS: LEVETIRACETAM 1,250 MG in SODIUM CHLORIDE 0.9% 100 ML IV SCH ×2 (09:23→21:25)
[2022-08-14] MEDS: PANTOPRAZOLE SODIUM 40 MG/VIAL IV SCH (09:24)
[2022-08-14] MEDS: AZATHIOPRINE 50MG TABLET PO SCH ×2 (09:24→17:24)
[2022-08-14] MEDS: GLYCOPYRROLATE 0.2 MG/ML 2ML VIAL IV PRN (14:26)
[2022-08-14] MEDS ORDERED: FUROSEMIDE 40MG/4ML VIAL IVP NR (15:00)
[2022-08-14] MEDS ORDERED: POTASSIUM CHLORIDE 20MEQ TABLET SR PO NR (15:00)
[2022-08-14] MEDS: VANCOMYCIN 1G PREMIX 200 ML IV SCH (17:33)
[2022-08-14] MEDS: WARFARIN SODIUM 2.5MG TABLET PO SCH (18:19)
[2022-08-15] VITALS (50 sets, daily range): BP systolic 89–146; BP diastolic 44–90
[2022-08-15] MEDS: METOCLOPRAMIDE HCL 10MG/2ML VIAL IV SCH ×5 (00:04→23:57)
[2022-08-15] MEDS: IPRATROPIUM BROMIDE (0.02%) 0.5MG/2.5ML NEB HHN SCH ×6 (00:54→21:59)
[2022-08-15] MEDS: DEXT 5%/LACTATED RINGERS 1,000 ML IV SCH ×2 (02:47→23:57)
[2022-08-15 06:07] LABS: HEMATOCRIT. 26.1 % (36.0-48.0); HEMOGLOBIN. 8.9 g/dL (12.0-16.0); MEAN CORPUSCULAR HEMOGLOBIN 29.3 pg (28.0-32.0); MEAN CORPUSCULAR VOLUME 86.2 fL (81.0-99.0); PLATELET 197 x1000/uL (130-400); RED BLOOD CELL COUNT 3.03 mill/uL (4.2-5.4); RED CELL DISTRIBUTION WIDTH 18.7 % (11.6-14.6)
[2022-08-15] MEDS: PIPERACILLIN/TAZOBACTAM 3.375 G in DEXTROSE 5% WATER 50 ML IV SCH ×3 (06:23→22:20)
[2022-08-15 06:24] LABS: PLATELET ESTIMATE NORMAL
[2022-08-15] MEDS: METHYLPREDNISOLONE SOD SUCC 40 MG/ML VIAL IV SCH ×2 (06:24→17:05)
[2022-08-15] MEDS: SILDENAFIL CITRATE 20MG TABLET PO SCH ×3 (06:24→22:20)
[2022-08-15 06:36] LABS: CHLORIDE 111 mEq/L (98-107)
[2022-08-15] MEDS: PANTOPRAZOLE SODIUM 40 MG/VIAL IV SCH (09:27)
[2022-08-15] MEDS: GLYCOPYRROLATE 0.2 MG/ML 2ML VIAL IV PRN (09:28)
[2022-08-15] MEDS: LEVETIRACETAM 1,250 MG in SODIUM CHLORIDE 0.9% 100 ML IV SCH ×2 (10:05→20:55)
[2022-08-15] MEDS: AZATHIOPRINE 50MG TABLET PO SCH ×2 (10:05→17:05)
[2022-08-15] MEDS ORDERED: FUROSEMIDE 40MG/4ML VIAL IVP NR (10:45)
[2022-08-15] MEDS ORDERED: ALBUMIN HUMAN 12.5GM/50ML (25%) IV NR (10:45)
[2022-08-15 10:59] LABS: PLATELET ESTIMATE NORMAL
[2022-08-15] MEDS: VANCOMYCIN 1G PREMIX 200 ML IV SCH (17:05)
[2022-08-15] MEDS: WARFARIN SODIUM 2.5MG TABLET PO SCH (18:21)
[2022-08-16] VITALS (21 sets, daily range): BP systolic 105–146; BP diastolic 47–92
[2022-08-16] MEDS: IPRATROPIUM BROMIDE (0.02%) 0.5MG/2.5ML NEB HHN SCH ×5 (00:08→20:33)
[2022-08-16 04:20] LABS: HEMATOCRIT. 25.3 % (36.0-48.0); HEMOGLOBIN. 8.9 g/dL (12.0-16.0); MEAN CORPUSCULAR VOLUME 93.8 fL (81.0-99.0); MEAN PLATELET VOLUME 8.1 fl (7.4-10.4); PLATELET 219 x1000/uL (130-400); RED CELL DISTRIBUTION WIDTH 18.5 % (11.6-14.6)
[2022-08-16 04:26] LABS: CHLORIDE 109 mEq/L (98-107); INR 1.4; PROTHROMBIN TIME 14.4 sec (9.6-11.0)
[2022-08-16] MEDS: METHYLPREDNISOLONE SOD SUCC 40 MG/ML VIAL IV SCH ×2 (05:13→17:55)
[2022-08-16] MEDS: METOCLOPRAMIDE HCL 10MG/2ML VIAL IV SCH ×3 (05:13→17:55)
[2022-08-16] MEDS: SILDENAFIL CITRATE 20MG TABLET PO SCH ×3 (05:13→22:08)
[2022-08-16] MEDS: PIPERACILLIN/TAZOBACTAM 3.375 G in DEXTROSE 5% WATER 50 ML IV SCH ×3 (05:14→22:08)
[2022-08-16 09:20] LABS: PLATELET ESTIMATE NORMAL
[2022-08-16] MEDS: SCOPOLAMINE HYDROBROMIDE PATCH 72HR TD SCH (09:28)
[2022-08-16] MEDS: LEVETIRACETAM 1,250 MG in SODIUM CHLORIDE 0.9% 100 ML IV SCH ×2 (09:28→22:16)
[2022-08-16] MEDS: PANTOPRAZOLE SODIUM 40 MG/VIAL IV SCH (09:28)
[2022-08-16] MEDS: AZATHIOPRINE 50MG TABLET PO SCH ×2 (09:28→17:55)
[2022-08-16] MEDS: VANCOMYCIN 1G PREMIX 200 ML IV SCH (17:55)
[2022-08-16] MEDS: WARFARIN SODIUM 2.5MG TABLET PO SCH (17:55)
[2022-08-16] MEDS ORDERED: FUROSEMIDE 40MG/4ML VIAL IVP NR (18:30)
[2022-08-16] MEDS: DEXT 5%/LACTATED RINGERS 1,000 ML IV SCH (20:52)
[2022-08-17] VITALS (16 sets, daily range): BP systolic 128–160; BP diastolic 69–109
[2022-08-17] MEDS: IPRATROPIUM BROMIDE (0.02%) 0.5MG/2.5ML NEB HHN SCH ×6 (00:26→20:44)
[2022-08-17] MEDS: METOCLOPRAMIDE HCL 10MG/2ML VIAL IV SCH ×5 (00:32→23:07)
[2022-08-17] MEDS: SILDENAFIL CITRATE 20MG TABLET PO SCH ×3 (05:39→21:57)
[2022-08-17] MEDS: PIPERACILLIN/TAZOBACTAM 3.375 G in DEXTROSE 5% WATER 50 ML IV SCH ×3 (05:40→21:57)
[2022-08-17] MEDS: METHYLPREDNISOLONE SOD SUCC 40 MG/ML VIAL IV SCH ×2 (05:42→17:07)
[2022-08-17] MEDS ORDERED: [UNRECOGNIZED DRUG - OTHER] XX SCH (08:45)
[2022-08-17] MEDS: LEVETIRACETAM 1,250 MG in SODIUM CHLORIDE 0.9% 100 ML IV SCH ×2 (08:56→21:56)
[2022-08-17] MEDS: AZATHIOPRINE 50MG TABLET PO SCH ×2 (08:56→17:07)
[2022-08-17] MEDS: PANTOPRAZOLE SODIUM 40 MG/VIAL IV SCH (08:56)
[2022-08-17 17:00] LABS: BG BASE EXCESS 10.3 mmol/L (-2.0-2.0); BG CARBOXYHEMOGLOBIN 0.3 % (0.5-1.5); BG DEOXYHEMOGLOBIN 2.4 % (0.0-5.0); BG METHEMOGLOBIN 0.1 % (0.0-1.5); BG OXYGEN SATURATION 97.6 % (92.0-98.5); BG OXYHEMOGLOBIN 97.2 % (94.0-97.0); BG PCO2 47.6 mmHg (35.0-45.0); BG PH 7.484 (7.350-7.450); BG PO2 104.8 mmHg (75.0-100.0); BG SAMPLE SITE RIGHT RADIAL; BG VENT MODE NASAL CANNULA
[2022-08-17] MEDS: WARFARIN SODIUM 2.5MG TABLET PO SCH (17:07)
[2022-08-17] MEDS: ACETAMINOPHEN 650MG/20.3ML UDC NG PRN (18:27)
[2022-08-17] MEDS: DEXT 5%/LACTATED RINGERS 1,000 ML IV SCH (21:57)
[2022-08-18] VITALS (13 sets, daily range): BP systolic 111–155; BP diastolic 52–90
[2022-08-18] MEDS: ACETYLCYSTEINE 200MG/ML 20% VIAL 4ML INH SCH (00:20)
[2022-08-18] MEDS: IPRATROPIUM BROMIDE (0.02%) 0.5MG/2.5ML NEB HHN SCH ×6 (00:50→21:12)
[2022-08-18] MEDS: SILDENAFIL CITRATE 20MG TABLET PO SCH ×3 (06:00→21:53)
[2022-08-18] MEDS: METHYLPREDNISOLONE SOD SUCC 40 MG/ML VIAL IV SCH ×2 (06:00→18:50)
[2022-08-18] MEDS: METOCLOPRAMIDE HCL 10MG/2ML VIAL IV SCH ×3 (06:00→18:50)
[2022-08-18] MEDS: PIPERACILLIN/TAZOBACTAM 3.375 G in DEXTROSE 5% WATER 50 ML IV SCH ×3 (06:00→21:53)
[2022-08-18 06:19] LABS: HEMOGLOBIN. 8.6 g/dL (12.0-16.0); MEAN CORPUSCULAR HEMOGLOBIN 32.7 pg (28.0-32.0); MEAN CORPUSCULAR VOLUME 95.3 fL (81.0-99.0); MEAN PLATELET VOLUME 8.4 fl (7.4-10.4); PLATELET 247 x1000/uL (130-400); RED BLOOD CELL COUNT 2.62 mill/uL (4.2-5.4); RED CELL DISTRIBUTION WIDTH 18.4 % (11.6-14.6)
[2022-08-18 08:17] LABS: CHLORIDE 111 mEq/L (98-107)
[2022-08-18] MEDS: AZATHIOPRINE 50MG TABLET PO SCH ×2 (09:00→18:50)
[2022-08-18] MEDS: PANTOPRAZOLE SODIUM 40 MG/VIAL IV SCH (10:43)
[2022-08-18] MEDS: LEVETIRACETAM 1,250 MG in SODIUM CHLORIDE 0.9% 100 ML IV SCH ×2 (10:43→21:52)
[2022-08-18] MEDS: ACETAMINOPHEN 650MG/20.3ML UDC NG PRN (11:48)
[2022-08-18] MEDS ORDERED: ALBUMIN HUMAN 12.5GM/50ML (25%) IV SCH (13:30)
[2022-08-18 13:48] LABS: PLATELET ESTIMATE NORMAL
[2022-08-18] MEDS ORDERED: FUROSEMIDE 40MG/4ML VIAL IVP NR (14:00)
[2022-08-18] MEDS ORDERED: VISCOUS LIDOCAINE 2% 15 ML UDC PO PRN (14:00)
[2022-08-18] MEDS: GUAIFENESIN 200MG/10ML SUGAR FREE UDC PO SCH ×2 (16:30→21:53)
[2022-08-18] MEDS: KETOCONAZOLE 200MG TABLET PO SCH (16:30)
[2022-08-18] MEDS: WARFARIN SODIUM 2.5MG TABLET PO SCH (18:52)
[2022-08-18] MEDS: DEXT 5%/LACTATED RINGERS 1,000 ML IV SCH (21:52)
[2022-08-18] MEDS: BETAMETHASONE DIPROPIONATE 0.05% LOTION 60ML TOP SCH (21:55)
[2022-08-19] VITALS (12 sets, daily range): BP systolic 93–136; BP diastolic 52–81
[2022-08-19] MEDS: IPRATROPIUM BROMIDE (0.02%) 0.5MG/2.5ML NEB HHN SCH ×6 (00:20→20:20)
[2022-08-19] MEDS: METOCLOPRAMIDE HCL 10MG/2ML VIAL IV SCH ×5 (01:06→23:01)
[2022-08-19] MEDS: GUAIFENESIN 200MG/10ML SUGAR FREE UDC PO SCH ×4 (05:39→21:48)
[2022-08-19] MEDS: METHYLPREDNISOLONE SOD SUCC 40 MG/ML VIAL IV SCH ×2 (05:40→17:44)
[2022-08-19] MEDS: SILDENAFIL CITRATE 20MG TABLET PO SCH ×3 (05:42→21:48)
[2022-08-19] MEDS: PIPERACILLIN/TAZOBACTAM 3.375 G in DEXTROSE 5% WATER 50 ML IV SCH (05:42)
[2022-08-19] MEDS: ACETYLCYSTEINE 200MG/ML 20% VIAL 4ML INH SCH ×2 (08:15→14:00)
[2022-08-19] MEDS: POTASSIUM CHLORIDE 20MEQ/PACKET PO SCH (10:19)
[2022-08-19] MEDS: AZATHIOPRINE 50MG TABLET PO SCH ×2 (10:19→17:44)
[2022-08-19] MEDS: PANTOPRAZOLE SODIUM 40 MG/VIAL IV SCH (10:20)
[2022-08-19] MEDS: FUROSEMIDE 40MG/4ML VIAL IVP SCH ×2 (10:20→17:44)
[2022-08-19] MEDS: SCOPOLAMINE HYDROBROMIDE PATCH 72HR TD SCH (11:10)
[2022-08-19] MEDS: LEVETIRACETAM 1,250 MG in SODIUM CHLORIDE 0.9% 100 ML IV SCH ×2 (11:11→21:47)
[2022-08-19] MEDS: KETOCONAZOLE 200MG TABLET PO SCH (11:28)
[2022-08-19] MEDS: BETAMETHASONE DIPROPIONATE 0.05% LOTION 60ML TOP SCH ×2 (12:14→21:47)
[2022-08-19 13:01] LABS: HEMATOCRIT. 23.5 % (36.0-48.0); HEMOGLOBIN. 7.7 g/dL (12.0-16.0); MEAN CORPUSCULAR HEMOGLOBIN 30.5 pg (28.0-32.0); MEAN CORPUSCULAR VOLUME 92.8 fL (81.0-99.0); MEAN PLATELET VOLUME 7.7 fl (7.4-10.4); PLATELET 242 x1000/uL (130-400); RED BLOOD CELL COUNT 2.54 mill/uL (4.2-5.4); RED CELL DISTRIBUTION WIDTH 18.4 % (11.6-14.6)
[2022-08-19 13:13] LABS: CHLORIDE 112 mEq/L (98-107)
[2022-08-19] MEDS: CEFTAZIDIME PENTAHYDRATE 2 G in DEXT 5% WATER 100 ML IV SCH ×2 (14:44→21:48)
[2022-08-19] MEDS: ACETAMINOPHEN 650MG/20.3ML UDC NG PRN ×2 (14:44→17:55)
[2022-08-19] MEDS: WARFARIN SODIUM 2.5MG TABLET PO SCH (17:44)
[2022-08-19 19:50] LABS: PLATELET ESTIMATE NORMAL
[2022-08-19] MEDS: DEXT 5%/LACTATED RINGERS 1,000 ML IV SCH (21:47)
[2022-08-19] MEDS: HYDROCODONE/ACETAMINOPHEN 5/325MG TABLET PO PRN (21:49)
[2022-08-20] VITALS (18 sets, daily range): BP systolic 84–125; BP diastolic 42–85
[2022-08-20] MEDS: IPRATROPIUM BROMIDE (0.02%) 0.5MG/2.5ML NEB HHN SCH ×6 (00:23→20:21)
[2022-08-20] MEDS: ACETYLCYSTEINE 200MG/ML 20% VIAL 4ML INH SCH ×3 (00:24→16:07)
[2022-08-20] MEDS: GUAIFENESIN 200MG/10ML SUGAR FREE UDC PO SCH ×4 (06:03→21:57)
[2022-08-20] MEDS: METHYLPREDNISOLONE SOD SUCC 40 MG/ML VIAL IV SCH ×2 (06:04→18:27)
[2022-08-20] MEDS: METOCLOPRAMIDE HCL 10MG/2ML VIAL IV SCH ×3 (06:04→18:27)
[2022-08-20] MEDS: SILDENAFIL CITRATE 20MG TABLET PO SCH ×3 (06:08→21:58)
[2022-08-20] MEDS: CEFTAZIDIME PENTAHYDRATE 2 G in DEXT 5% WATER 100 ML IV SCH ×3 (06:08→21:58)
[2022-08-20] MEDS: FUROSEMIDE 40MG/4ML VIAL IVP SCH ×2 (07:15→10:04)
[2022-08-20] MEDS: KETOCONAZOLE 200MG TABLET PO SCH (10:04)
[2022-08-20] MEDS: POTASSIUM CHLORIDE 20MEQ/PACKET PO SCH (10:04)
[2022-08-20] MEDS: PANTOPRAZOLE SODIUM 40 MG/VIAL IV SCH (10:04)
[2022-08-20] MEDS: AZATHIOPRINE 50MG TABLET PO SCH ×2 (10:04→16:55)
[2022-08-20] MEDS: LEVETIRACETAM 1,250 MG in SODIUM CHLORIDE 0.9% 100 ML IV SCH ×2 (10:04→21:58)
[2022-08-20] MEDS: BETAMETHASONE DIPROPIONATE 0.05% LOTION 60ML TOP SCH ×2 (10:06→22:01)
[2022-08-20] MEDS ORDERED: MORPHINE SULFATE 2 MG/ML CPJ (NOT FOR IM USE) IV PRN (11:15)
[2022-08-20] MEDS ORDERED: NALOXONE HCL 0.4MG/ML VIAL IV PRN (11:15)
[2022-08-20] MEDS: WARFARIN SODIUM 2.5MG TABLET PO SCH (18:28)
[2022-08-20] MEDS: DIGOXIN 500MCG/2ML AMP IV SCH (18:28)
[2022-08-20] MEDS: HYDROCODONE/ACETAMINOPHEN 5/325MG TABLET PO PRN (22:48)
[2022-08-21] VITALS (14 sets, daily range): BP systolic 84–130; BP diastolic 39–67
[2022-08-21] MEDS: IPRATROPIUM BROMIDE (0.02%) 0.5MG/2.5ML NEB HHN SCH ×6 (00:30→20:57)
[2022-08-21] MEDS: ACETYLCYSTEINE 200MG/ML 20% VIAL 4ML INH SCH ×3 (00:30→16:32)
[2022-08-21] MEDS: METOCLOPRAMIDE HCL 10MG/2ML VIAL IV SCH ×5 (00:30→23:39)
[2022-08-21] MEDS ORDERED: METHOTREXATE SODIUM/PF 50 MG/2 ML VIAL IM NR (04:00)
[2022-08-21] MEDS: FOLIC ACID 1MG TABLET PO SCH (04:35)
[2022-08-21] MEDS: HYDROCODONE/ACETAMINOPHEN 5/325MG TABLET PO PRN ×3 (04:35→21:48)
[2022-08-21] MEDS: GUAIFENESIN 200MG/10ML SUGAR FREE UDC PO SCH ×4 (04:45→21:47)
[2022-08-21] MEDS: CEFTAZIDIME PENTAHYDRATE 2 G in DEXT 5% WATER 100 ML IV SCH ×3 (05:32→21:48)
[2022-08-21] MEDS: SILDENAFIL CITRATE 20MG TABLET PO SCH ×3 (05:33→21:48)
[2022-08-21] MEDS: METHYLPREDNISOLONE SOD SUCC 40 MG/ML VIAL IV SCH ×2 (05:33→18:09)
[2022-08-21] MEDS ORDERED: FUROSEMIDE 40MG/4ML VIAL IVP SCH (09:00)
[2022-08-21] MEDS: BETAMETHASONE DIPROPIONATE 0.05% LOTION 60ML TOP SCH ×2 (09:00→21:58)
[2022-08-21] MEDS: PANTOPRAZOLE SODIUM 40 MG/VIAL IV SCH (09:08)
[2022-08-21] MEDS: AZATHIOPRINE 50MG TABLET PO SCH ×2 (09:08→18:09)
[2022-08-21] MEDS: KETOCONAZOLE 200MG TABLET PO SCH (09:08)
[2022-08-21] MEDS: LEVETIRACETAM 1,250 MG in SODIUM CHLORIDE 0.9% 100 ML IV SCH ×2 (09:08→23:26)
[2022-08-21] MEDS: POTASSIUM CHLORIDE 20MEQ/PACKET PO SCH (09:08)
[2022-08-21] MEDS: ACETAMINOPHEN 650MG/20.3ML UDC NG PRN ×2 (14:29→18:09)
[2022-08-21 17:00] LABS: INR 1.2; PARTIAL THROMBOPLASTIN TIME 25.3 sec (23.4-31.0); PROTHROMBIN TIME 12.8 sec (9.6-11.0)
[2022-08-21 17:13] LABS: CHLORIDE 116 mEq/L (98-107)
[2022-08-21] MEDS: DIGOXIN 500MCG/2ML AMP IV SCH (17:51)
[2022-08-21] MEDS: DEXT 5%/LACTATED RINGERS 1,000 ML IV SCH (21:49)
[2022-08-22] VITALS (18 sets, daily range): BP systolic 90–143; BP diastolic 41–76
[2022-08-22] MEDS: IPRATROPIUM BROMIDE (0.02%) 0.5MG/2.5ML NEB HHN SCH ×6 (00:38→21:23)
[2022-08-22] MEDS: ACETYLCYSTEINE 200MG/ML 20% VIAL 4ML INH SCH ×3 (00:38→16:12)
[2022-08-22] MEDS: GUAIFENESIN 200MG/10ML SUGAR FREE UDC PO SCH ×4 (04:06→21:47)
[2022-08-22] MEDS: METOCLOPRAMIDE HCL 10MG/2ML VIAL IV SCH ×3 (05:47→17:53)
[2022-08-22] MEDS: METHYLPREDNISOLONE SOD SUCC 40 MG/ML VIAL IV SCH ×2 (05:47→17:53)
[2022-08-22] MEDS: CEFTAZIDIME PENTAHYDRATE 2 G in DEXT 5% WATER 100 ML IV SCH ×3 (05:47→21:45)
[2022-08-22] MEDS: SILDENAFIL CITRATE 20MG TABLET PO SCH ×3 (05:48→21:47)
[2022-08-22] MEDS: FOLIC ACID 1MG TABLET PO SCH (09:00)
[2022-08-22] MEDS: POTASSIUM CHLORIDE 20MEQ/PACKET PO SCH (09:00)
[2022-08-22 09:49] LABS: HEMATOCRIT. 21.1 % (36.0-48.0); LYMPHOCYTES % 8.5 % (20.0-50.0); MEAN CORPUSCULAR HEMOGLOBIN 28.9 pg (28.0-32.0); MEAN PLATELET VOLUME 7.8 fl (7.4-10.4); MONOCYTES % 3.6 % (2.0-8.0); NEUTROPHILS % 87.9 % (40.0-76.0); PLATELET 296 x1000/uL (130-400); RED BLOOD CELL COUNT 2.32 mill/uL (4.2-5.4); RED CELL DISTRIBUTION WIDTH 18.1 % (11.6-14.6)
[2022-08-22 09:56] LABS: HEMOGLOBIN. 6.7 g/dL (12.0-16.0)
[2022-08-22] MEDS ORDERED: CEFAZOLIN 1000MG PREMIX 50 ML IV SCH (10:00)
[2022-08-22 10:11] LABS: CHLORIDE 112 mEq/L (98-107)
[2022-08-22] MEDS: AZATHIOPRINE 50MG TABLET PO SCH ×2 (11:33→17:53)
[2022-08-22] MEDS: SCOPOLAMINE HYDROBROMIDE PATCH 72HR TD SCH (11:33)
[2022-08-22] MEDS: KETOCONAZOLE 200MG TABLET PO SCH (11:33)
[2022-08-22] MEDS: ACETAMINOPHEN 650MG/20.3ML UDC NG PRN ×2 (11:41→17:53)
[2022-08-22] MEDS: BETAMETHASONE DIPROPIONATE 0.05% LOTION 60ML TOP SCH ×2 (11:42→21:44)
[2022-08-22] MEDS: LEVETIRACETAM 1,250 MG in SODIUM CHLORIDE 0.9% 100 ML IV SCH ×2 (11:42→21:44)
[2022-08-22] MEDS ORDERED: PROPOFOL 200MG/20ML VIAL IV ONE (12:20)
[2022-08-22 14:00] LABS: INR 1.1; PROTHROMBIN TIME 11.9 sec (9.6-11.0)
[2022-08-22] MEDS: DIGOXIN 500MCG/2ML AMP IV SCH (17:55)
[2022-08-22] MEDS: HYDROCODONE/ACETAMINOPHEN 5/325MG TABLET PO PRN (23:55)
[2022-08-23] VITALS (14 sets, daily range): BP systolic 110–134; BP diastolic 57–99
[2022-08-23] MEDS: METOCLOPRAMIDE HCL 10MG/2ML VIAL IV SCH ×4 (01:04→17:11)
[2022-08-23] MEDS: IPRATROPIUM BROMIDE (0.02%) 0.5MG/2.5ML NEB HHN SCH ×6 (01:15→20:06)
[2022-08-23] MEDS: CEFTAZIDIME PENTAHYDRATE 2 G in DEXT 5% WATER 100 ML IV SCH ×3 (06:43→21:23)
[2022-08-23] MEDS: SILDENAFIL CITRATE 20MG TABLET PO SCH ×3 (06:44→21:24)
[2022-08-23] MEDS: GUAIFENESIN 200MG/10ML SUGAR FREE UDC PO SCH ×4 (06:45→21:24)
[2022-08-23] MEDS: HYDROCODONE/ACETAMINOPHEN 5/325MG TABLET PO PRN ×3 (06:45→21:24)
[2022-08-23] MEDS: METHYLPREDNISOLONE SOD SUCC 40 MG/ML VIAL IV SCH ×2 (06:46→17:11)
[2022-08-23] MEDS: KETOCONAZOLE 200MG TABLET PO SCH (08:43)
[2022-08-23] MEDS: FOLIC ACID 1MG TABLET PO SCH (08:43)
[2022-08-23] MEDS: POTASSIUM CHLORIDE 20MEQ/PACKET PO SCH (08:43)
[2022-08-23] MEDS: AZATHIOPRINE 50MG TABLET PO SCH ×2 (08:43→17:10)
[2022-08-23] MEDS: BETAMETHASONE DIPROPIONATE 0.05% LOTION 60ML TOP SCH ×2 (08:44→21:26)
[2022-08-23] MEDS: LEVETIRACETAM 1,250 MG in SODIUM CHLORIDE 0.9% 100 ML IV SCH ×2 (08:56→21:23)
[2022-08-23 09:25] LABS: EOSINOPHILS % 0.2 % (0.0-5.0); HEMATOCRIT. 26.8 % (36.0-48.0); HEMOGLOBIN. 8.9 g/dL (12.0-16.0); LYMPHOCYTES % 11.6 % (20.0-50.0); MEAN CORPUSCULAR HEMOGLOBIN 29.6 pg (28.0-32.0); MEAN CORPUSCULAR VOLUME 89.3 fL (81.0-99.0); MEAN PLATELET VOLUME 8.1 fl (7.4-10.4); MONOCYTES % 1.7 % (2.0-8.0); NEUTROPHILS % 86.5 % (40.0-76.0); PLATELET 260 x1000/uL (130-400); RED CELL DISTRIBUTION WIDTH 19.3 % (11.6-14.6)
[2022-08-23 09:47] LABS: CHLORIDE 116 mEq/L (98-107)
[2022-08-23 10:07] LABS: DIGOXIN 0.6 ng/mL (0.9-2.0)
[2022-08-23] MEDS: ACETAMINOPHEN 650MG/20.3ML UDC NG PRN (17:10)
[2022-08-23] MEDS: DIGOXIN 500MCG/2ML AMP IV SCH (17:11)
[2022-08-24] VITALS (13 sets, daily range): BP systolic 89–115; BP diastolic 46–69
[2022-08-24] MEDS: METOCLOPRAMIDE HCL 10MG/2ML VIAL IV SCH ×5 (00:06→23:53)
[2022-08-24] MEDS: GUAIFENESIN 200MG/10ML SUGAR FREE UDC PO SCH ×4 (04:39→22:30)
[2022-08-24] MEDS: IPRATROPIUM BROMIDE (0.02%) 0.5MG/2.5ML NEB HHN SCH ×6 (05:08→23:33)
[2022-08-24] MEDS: CEFTAZIDIME PENTAHYDRATE 2 G in DEXT 5% WATER 100 ML IV SCH ×2 (06:03→13:23)
[2022-08-24] MEDS: METHYLPREDNISOLONE SOD SUCC 40 MG/ML VIAL IV SCH ×2 (06:03→17:41)
[2022-08-24] MEDS: SILDENAFIL CITRATE 20MG TABLET PO SCH ×2 (06:04→13:32)
[2022-08-24] MEDS: ACETAMINOPHEN 650MG/20.3ML UDC NG PRN ×2 (06:09→15:35)
[2022-08-24 06:37] LABS: HEMOGLOBIN. 9.2 g/dL (12.0-16.0); MEAN CORPUSCULAR HEMOGLOBIN 30.2 pg (28.0-32.0); MEAN CORPUSCULAR VOLUME 91.4 fL (81.0-99.0); MEAN PLATELET VOLUME 7.9 fl (7.4-10.4); PLATELET 287 x1000/uL (130-400); RED BLOOD CELL COUNT 3.06 mill/uL (4.2-5.4); RED CELL DISTRIBUTION WIDTH 19.6 % (11.6-14.6)
[2022-08-24 06:49] LABS: CHLORIDE 113 mEq/L (98-107)
[2022-08-24] MEDS: AZATHIOPRINE 50MG TABLET PO SCH ×2 (09:33→17:54)
[2022-08-24] MEDS: LEVETIRACETAM 1,250 MG in SODIUM CHLORIDE 0.9% 100 ML IV SCH ×2 (09:33→21:50)
[2022-08-24] MEDS: FOLIC ACID 1MG TABLET PO SCH (09:33)
[2022-08-24] MEDS: POTASSIUM CHLORIDE 20MEQ/PACKET PO SCH (09:33)
[2022-08-24] MEDS: BETAMETHASONE DIPROPIONATE 0.05% LOTION 60ML TOP SCH ×2 (09:35→22:00)
[2022-08-24] MEDS: HYDROCODONE/ACETAMINOPHEN 5/325MG TABLET PO PRN ×2 (16:59→23:54)
[2022-08-24] MEDS: METRONIDAZOLE 500 MG PREMIX 100 ML IV SCH ×2 (16:59→21:50)
[2022-08-24] MEDS: VANCOMYCIN 1000MG/20ML ORAL SOLN PO SCH ×2 (17:41→23:55)
[2022-08-24] MEDS: DIGOXIN 500MCG/2ML AMP IV SCH (17:41)
[2022-08-24 22:14] LABS: PLATELET ESTIMATE NORMAL
[2022-08-25] VITALS (16 sets, daily range): BP systolic 78–118; BP diastolic 42–73
[2022-08-25] MEDS: HYDROCODONE/ACETAMINOPHEN 5/325MG TABLET PO PRN (01:01)
[2022-08-25] MEDS: KETOROLAC 15MG/ML VIAL IV PRN ×3 (01:26→20:35)
[2022-08-25] MEDS: IPRATROPIUM BROMIDE (0.02%) 0.5MG/2.5ML NEB HHN SCH ×5 (03:58→21:28)
[2022-08-25] MEDS: GUAIFENESIN 200MG/10ML SUGAR FREE UDC PO SCH ×4 (04:30→21:01)
[2022-08-25 05:47] LABS: HEMATOCRIT. 24.5 % (36.0-48.0); HEMOGLOBIN. 8.1 g/dL (12.0-16.0); MEAN CORPUSCULAR HEMOGLOBIN 29.6 pg (28.0-32.0); MEAN CORPUSCULAR VOLUME 89.2 fL (81.0-99.0); PLATELET 271 x1000/uL (130-400); RED BLOOD CELL COUNT 2.74 mill/uL (4.2-5.4); RED CELL DISTRIBUTION WIDTH 18.8 % (11.6-14.6)
[2022-08-25] MEDS: VANCOMYCIN 1000MG/20ML ORAL SOLN PO SCH ×4 (06:00→23:32)
[2022-08-25 08:20] LABS: CHLORIDE 119 mEq/L (98-107)
[2022-08-25] MEDS: FOLIC ACID 1MG TABLET PO SCH (08:33)
[2022-08-25] MEDS: METHYLPREDNISOLONE SOD SUCC 40 MG/ML VIAL IV SCH ×2 (08:40→19:29)
[2022-08-25] MEDS: LEVETIRACETAM 1,250 MG in SODIUM CHLORIDE 0.9% 100 ML IV SCH ×2 (08:41→21:17)
[2022-08-25] MEDS: SCOPOLAMINE HYDROBROMIDE PATCH 72HR TD SCH (08:41)
[2022-08-25] MEDS: METRONIDAZOLE 500 MG PREMIX 100 ML IV SCH ×3 (08:41→22:19)
[2022-08-25] MEDS: METOCLOPRAMIDE HCL 10MG/2ML VIAL IV SCH ×3 (08:41→19:28)
[2022-08-25] MEDS: POTASSIUM CHLORIDE 20MEQ/PACKET PO SCH (09:00)
[2022-08-25] MEDS: BETAMETHASONE DIPROPIONATE 0.05% LOTION 60ML TOP SCH ×2 (09:00→20:36)
[2022-08-25] MEDS: AZATHIOPRINE 50MG TABLET PO SCH ×2 (09:00→17:00)
[2022-08-25] MEDS ORDERED: SODIUM CHLORIDE 0.9% 250 ML IV ONE (11:00)
[2022-08-25] MEDS: DEXT 5%/0.9% NACL 1,000 ML IV SCH ×2 (11:43→21:17)
[2022-08-25 14:35] LABS: PLATELET ESTIMATE NORMAL
[2022-08-25] MEDS: DIGOXIN 500MCG/2ML AMP IV SCH (19:28)
[2022-08-26] VITALS (11 sets, daily range): BP systolic 88–138; BP diastolic 40–71
[2022-08-26] MEDS: METOCLOPRAMIDE HCL 10MG/2ML VIAL IV SCH ×4 (00:51→17:11)
[2022-08-26] MEDS: IPRATROPIUM BROMIDE (0.02%) 0.5MG/2.5ML NEB HHN SCH ×6 (01:02→20:39)
[2022-08-26] MEDS: METHYLPREDNISOLONE SOD SUCC 40 MG/ML VIAL IV SCH ×4 (02:13→20:53)
[2022-08-26 03:30] LABS: HEMATOCRIT. 23.6 % (36.0-48.0); HEMOGLOBIN. 7.5 g/dL (12.0-16.0); MEAN CORPUSCULAR HEMOGLOBIN 28.7 pg (28.0-32.0); MEAN PLATELET VOLUME 7.8 fl (7.4-10.4); PLATELET 242 x1000/uL (130-400); RED BLOOD CELL COUNT 2.62 mill/uL (4.2-5.4); RED CELL DISTRIBUTION WIDTH 18.8 % (11.6-14.6)
[2022-08-26 03:59] LABS: INR 1.1; PROTHROMBIN TIME 11.5 sec (9.6-11.0)
[2022-08-26 04:09] LABS: CHLORIDE 126 mEq/L (98-107)
[2022-08-26] MEDS: KETOROLAC 15MG/ML VIAL IV PRN ×3 (04:25→20:52)
[2022-08-26] MEDS: GUAIFENESIN 200MG/10ML SUGAR FREE UDC PO SCH ×4 (04:25→22:23)
[2022-08-26 04:38] LABS: CREATINE KINASE 22 IU/L (26-192)
[2022-08-26] MEDS: VANCOMYCIN 1000MG/20ML ORAL SOLN PO SCH ×3 (05:08→17:11)
[2022-08-26] MEDS: METRONIDAZOLE 500 MG PREMIX 100 ML IV SCH ×3 (05:14→22:08)
[2022-08-26] MEDS: DEXTROSE 5% WATER 1,000 ML IV SCH ×2 (06:43→18:35)
[2022-08-26] MEDS ORDERED: CEFAZOLIN 1000MG PREMIX 50 ML IV NR (08:00)
[2022-08-26] MEDS: LEVETIRACETAM 1,250 MG in SODIUM CHLORIDE 0.9% 100 ML IV SCH ×2 (08:09→22:09)
[2022-08-26] MEDS: BETAMETHASONE DIPROPIONATE 0.05% LOTION 60ML TOP SCH ×2 (08:58→22:16)
[2022-08-26] MEDS ORDERED: PROPOFOL 200MG/20ML VIAL IV ONE (09:55)
[2022-08-26] MEDS ORDERED: SODIUM CHLORIDE 0.9% 1,000 ML IV SCH (11:00)
[2022-08-26] MEDS ORDERED: ALBUMIN HUMAN 25GM/100ML (25%) IV SCH (12:00)
[2022-08-26] MEDS: FOLIC ACID 1MG TABLET PO SCH (12:24)
[2022-08-26] MEDS: AZATHIOPRINE 50MG TABLET PO SCH ×2 (12:24→17:12)
[2022-08-26] MEDS: POTASSIUM CHLORIDE 20MEQ/PACKET PO SCH (12:24)
[2022-08-26 12:28] LABS: PLATELET ESTIMATE NORMAL
[2022-08-26] MEDS: DIGOXIN 500MCG/2ML AMP IV SCH (17:25)
[2022-08-26] MEDS ORDERED: LACTATED RINGERS 1,000 ML IV STA (18:00)
[2022-08-26] MEDS ORDERED: FUROSEMIDE 40MG/4ML VIAL IVP NR (18:45)
[2022-08-27] VITALS (18 sets, daily range): BP systolic 87–139; BP diastolic 48–78
[2022-08-27] MEDS: VANCOMYCIN 1000MG/20ML ORAL SOLN PO SCH ×5 (00:42→23:29)
[2022-08-27] MEDS: METOCLOPRAMIDE HCL 10MG/2ML VIAL IV SCH ×5 (00:42→23:30)
[2022-08-27] MEDS: IPRATROPIUM BROMIDE (0.02%) 0.5MG/2.5ML NEB HHN SCH ×6 (00:44→20:14)
[2022-08-27] MEDS: METHYLPREDNISOLONE SOD SUCC 40 MG/ML VIAL IV SCH ×4 (02:01→21:01)
[2022-08-27] MEDS: KETOROLAC 15MG/ML VIAL IV PRN (02:01)
[2022-08-27] MEDS: DEXTROSE 5% WATER 1,000 ML IV SCH ×3 (02:02→23:19)
[2022-08-27] MEDS: GUAIFENESIN 200MG/10ML SUGAR FREE UDC PO SCH ×4 (03:46→23:15)
[2022-08-27] MEDS: METRONIDAZOLE 500 MG PREMIX 100 ML IV SCH ×3 (05:32→21:03)
[2022-08-27] MEDS: AZATHIOPRINE 50MG TABLET PO SCH ×2 (08:58→18:17)
[2022-08-27] MEDS: POTASSIUM CHLORIDE 20MEQ/PACKET PO SCH (08:59)
[2022-08-27] MEDS: LEVETIRACETAM 1,250 MG in SODIUM CHLORIDE 0.9% 100 ML IV SCH ×2 (09:05→23:15)
[2022-08-27] MEDS: FOLIC ACID 1MG TABLET PO SCH (09:05)
[2022-08-27] MEDS: ACETAMINOPHEN 650MG/20.3ML UDC NG PRN (09:17)
[2022-08-27] MEDS: SCOPOLAMINE HYDROBROMIDE PATCH 72HR TD SCH (09:17)
[2022-08-27 09:48] LABS: HEMATOCRIT. 21.8 % (36.0-48.0); MEAN CORPUSCULAR HEMOGLOBIN 28.9 pg (28.0-32.0); MEAN CORPUSCULAR VOLUME 89.6 fL (81.0-99.0); PLATELET 180 x1000/uL (130-400); RED BLOOD CELL COUNT 2.44 mill/uL (4.2-5.4); RED CELL DISTRIBUTION WIDTH 18.6 % (11.6-14.6)
[2022-08-27 14:07] LABS: PLATELET ESTIMATE NORMAL
[2022-08-27] MEDS ORDERED: NALOXONE HCL 0.4MG/ML VIAL IV PRN (16:00)
[2022-08-27] MEDS: MORPHINE SULFATE 2 MG/ML CPJ (NOT FOR IM USE) IV PRN (16:02)
[2022-08-27] MEDS: DIGOXIN 500MCG/2ML AMP IV SCH (18:17)
[2022-08-27] MEDS: BETAMETHASONE DIPROPIONATE 0.05% LOTION 60ML TOP SCH ×2 (18:20→18:29)
[2022-08-27] MEDS: IPRATROPIUM/ALBUTEROL 0.5-3(2.5)MG/3ML NEB HHN PRN (20:14)
[2022-08-27] MEDS ORDERED: ALBUMIN HUMAN 12.5GM/50ML (25%) IV NR (21:15)
[2022-08-28] VITALS (18 sets, daily range): BP systolic 87–143; BP diastolic 35–108
[2022-08-28] MEDS: IPRATROPIUM BROMIDE (0.02%) 0.5MG/2.5ML NEB HHN SCH ×6 (00:21→20:42)
[2022-08-28] MEDS: MORPHINE SULFATE 2 MG/ML CPJ (NOT FOR IM USE) IV PRN ×2 (02:12→16:19)
[2022-08-28] MEDS: METHYLPREDNISOLONE SOD SUCC 40 MG/ML VIAL IV SCH ×5 (02:12→23:54)
[2022-08-28] MEDS: IPRATROPIUM/ALBUTEROL 0.5-3(2.5)MG/3ML NEB HHN PRN (03:56)
[2022-08-28 04:34] LABS: CHLORIDE 123 mEq/L (98-107)
[2022-08-28] MEDS: METOCLOPRAMIDE HCL 10MG/2ML VIAL IV SCH ×4 (05:21→23:54)
[2022-08-28] MEDS: METRONIDAZOLE 500 MG PREMIX 100 ML IV SCH ×3 (05:21→21:42)
[2022-08-28] MEDS: VANCOMYCIN 1000MG/20ML ORAL SOLN PO SCH ×4 (05:22→23:54)
[2022-08-28] MEDS: GUAIFENESIN 200MG/10ML SUGAR FREE UDC PO SCH ×4 (05:24→21:41)
[2022-08-28 07:15] LABS: HEMATOCRIT. 25.2 % (36.0-48.0); HEMOGLOBIN. 8.1 g/dL (12.0-16.0); MEAN CORPUSCULAR HEMOGLOBIN 28.2 pg (28.0-32.0); MEAN CORPUSCULAR VOLUME 87.5 fL (81.0-99.0); MEAN PLATELET VOLUME 8.1 fl (7.4-10.4); PLATELET 129 x1000/uL (130-400); RED BLOOD CELL COUNT 2.87 mill/uL (4.2-5.4)
[2022-08-28 09:07] LABS: ALDOLASE 2.6 U/L (3.3-10.3)
[2022-08-28] MEDS: FOLIC ACID 1MG TABLET PO SCH (09:48)
[2022-08-28] MEDS: POTASSIUM CHLORIDE 20MEQ/PACKET PO SCH (09:48)
[2022-08-28] MEDS: AZATHIOPRINE 50MG TABLET PO SCH (09:48)
[2022-08-28] MEDS: BETAMETHASONE DIPROPIONATE 0.05% LOTION 60ML TOP SCH ×2 (09:52→21:42)
[2022-08-28] MEDS: DEXTROSE 5% WATER 1,000 ML IV SCH ×2 (09:53→18:45)
[2022-08-28 13:05] LABS: PLATELET ESTIMATE SLIGHTLY DECREASED
[2022-08-28 13:07] LABS: ATYPICAL P-ANCA <1:20 titer (Neg:<1:20); CYTOPLASMIC C-ANCA <1:20 titer (Neg:<1:20); PERINUCLEAR P-ANCA <1:20 titer (Neg:<1:20)
[2022-08-28] MEDS: LEVETIRACETAM 1,250 MG in SODIUM CHLORIDE 0.9% 100 ML IV SCH ×2 (13:12→21:41)
[2022-08-28 16:21] LABS: CHLORIDE 113 mEq/L (98-107)
[2022-08-28] MEDS: DIGOXIN 500MCG/2ML AMP IV SCH (18:58)
[2022-08-28 19:08] LABS: ANTI-MYELOPEROXIDASE AB < 0.2 units (0.0-0.9); ANTI-PROTEINASE 3 ABS < 0.2 units (0.0-0.9)
[2022-08-29] VITALS (12 sets, daily range): BP systolic 100–149; BP diastolic 48–98
[2022-08-29] MEDS: IPRATROPIUM BROMIDE (0.02%) 0.5MG/2.5ML NEB HHN SCH ×7 (00:24→23:30)
[2022-08-29] MEDS: ACETYLCYSTEINE 200MG/ML 20% VIAL 4ML INH SCH ×2 (00:37→08:45)
[2022-08-29] MEDS: VANCOMYCIN 1000MG/20ML ORAL SOLN PO SCH ×4 (05:05→23:16)
[2022-08-29] MEDS: GUAIFENESIN 200MG/10ML SUGAR FREE UDC PO SCH ×4 (05:05→21:09)
[2022-08-29] MEDS: METRONIDAZOLE 500 MG PREMIX 100 ML IV SCH (05:05)
[2022-08-29] MEDS: METOCLOPRAMIDE HCL 10MG/2ML VIAL IV SCH ×3 (05:05→18:57)
[2022-08-29] MEDS: MORPHINE SULFATE 2 MG/ML CPJ (NOT FOR IM USE) IV PRN (05:09)
[2022-08-29] MEDS: FOLIC ACID 1MG TABLET PO SCH (09:31)
[2022-08-29] MEDS: AZATHIOPRINE 50MG TABLET PO SCH ×3 (09:32→17:00)
[2022-08-29] MEDS: LEVETIRACETAM 1,250 MG in SODIUM CHLORIDE 0.9% 100 ML IV SCH ×2 (09:33→21:09)
[2022-08-29] MEDS: POTASSIUM CHLORIDE 20MEQ/PACKET PO SCH (09:33)
[2022-08-29] MEDS: BETAMETHASONE DIPROPIONATE 0.05% LOTION 60ML TOP SCH ×2 (09:34→21:10)
[2022-08-29] MEDS: METHYLPREDNISOLONE SOD SUCC 40 MG/ML VIAL IV SCH ×3 (09:42→21:09)
[2022-08-29 09:52] LABS: CHLORIDE 123 mEq/L (98-107)
[2022-08-29] MEDS ORDERED: VITAMINS A AND D OINT TUBE TOP PRN (10:00)
[2022-08-29] MEDS: BLOOD SUGAR DIAGNOSTIC STRIP TEST SCH ×3 (12:00→23:16)
[2022-08-29] MEDS: ACETAMINOPHEN 650MG/20.3ML UDC NG PRN ×2 (13:51→21:10)
[2022-08-29] MEDS: ACETYLCYSTEINE 100MG/ML 10% VIAL 4ML INH SCH ×2 (16:15→23:29)
[2022-08-29] MEDS: METHOTREXATE SODIUM 2 . 5MG TABLET PEG SCH ×3 (16:53→23:16)
[2022-08-29 18:23] LABS: HEMATOCRIT. 28.2 % (36.0-48.0); HEMOGLOBIN. 9.1 g/dL (12.0-16.0); MEAN CORPUSCULAR VOLUME 86.4 fL (81.0-99.0); MEAN PLATELET VOLUME 8.1 fl (7.4-10.4); PLATELET 132 x1000/uL (130-400); RED BLOOD CELL COUNT 3.26 mill/uL (4.2-5.4); RED CELL DISTRIBUTION WIDTH 19.1 % (11.6-14.6)
[2022-08-29] MEDS: DIGOXIN 500MCG/2ML AMP IV SCH (18:57)
[2022-08-29 19:42] LABS: PLATELET ESTIMATE NORMAL
[2022-08-29] MEDS: IPRATROPIUM/ALBUTEROL 0.5-3(2.5)MG/3ML NEB HHN PRN (23:30)
[2022-08-30] VITALS (11 sets, daily range): BP systolic 108–154; BP diastolic 66–89
[2022-08-30] MEDS: IPRATROPIUM BROMIDE (0.02%) 0.5MG/2.5ML NEB HHN SCH ×5 (03:57→21:08)
[2022-08-30] MEDS: MORPHINE SULFATE 2 MG/ML CPJ (NOT FOR IM USE) IV PRN ×2 (05:01→14:42)
[2022-08-30] MEDS: VANCOMYCIN 1000MG/20ML ORAL SOLN PO SCH ×3 (06:50→17:55)
[2022-08-30] MEDS: GUAIFENESIN 200MG/10ML SUGAR FREE UDC PO SCH ×4 (06:50→21:46)
[2022-08-30] MEDS: BLOOD SUGAR DIAGNOSTIC STRIP TEST SCH ×3 (06:50→18:10)
[2022-08-30] MEDS: ACETYLCYSTEINE 100MG/ML 10% VIAL 4ML INH SCH ×2 (08:30→16:15)
[2022-08-30] MEDS: LEVETIRACETAM 1,250 MG in SODIUM CHLORIDE 0.9% 100 ML IV SCH ×2 (08:52→21:46)
[2022-08-30] MEDS: FOLIC ACID 1MG TABLET PO SCH (08:53)
[2022-08-30] MEDS: POTASSIUM CHLORIDE 20MEQ/PACKET PO SCH (08:53)
[2022-08-30] MEDS: AZATHIOPRINE 50MG TABLET PO SCH ×2 (08:53→17:54)
[2022-08-30] MEDS: ACETAMINOPHEN 650MG/20.3ML UDC NG PRN (08:56)
[2022-08-30] MEDS: BETAMETHASONE DIPROPIONATE 0.05% LOTION 60ML TOP SCH ×2 (08:58→21:47)
[2022-08-30] MEDS: METOCLOPRAMIDE HCL 10MG/2ML VIAL IV SCH ×2 (12:30→17:54)
[2022-08-30 15:11] LABS: BASOPHILS % 0.1 % (0.0-2.0); HEMATOCRIT. 23.9 % (36.0-48.0); HEMOGLOBIN. 7.4 g/dL (12.0-16.0); LYMPHOCYTES % 14.7 % (20.0-50.0); MEAN CORPUSCULAR HEMOGLOBIN 27.8 pg (28.0-32.0); MEAN CORPUSCULAR VOLUME 89.3 fL (81.0-99.0); MEAN PLATELET VOLUME 8.2 fl (7.4-10.4); MONOCYTES % 2.5 % (2.0-8.0); NEUTROPHILS % 81.7 % (40.0-76.0); PLATELET 107 x1000/uL (130-400); RED BLOOD CELL COUNT 2.68 mill/uL (4.2-5.4); RED CELL DISTRIBUTION WIDTH 19.2 % (11.6-14.6)
[2022-08-30 16:35] LABS: CREATINE KINASE 26 IU/L (26-192)
[2022-08-30] MEDS: METOPROLOL TARTRATE 25MG TABLET NG PRN (16:35)
[2022-08-30] MEDS: DIGOXIN 500MCG/2ML AMP IV SCH (17:54)
[2022-08-30 18:03] LABS: CHLORIDE 123 mEq/L (98-107)
[2022-08-31] VITALS (14 sets, daily range): BP systolic 101–128; BP diastolic 59–75
[2022-08-31] MEDS: VANCOMYCIN 1000MG/20ML ORAL SOLN PO SCH ×4 (00:01→17:01)
[2022-08-31] MEDS: METOCLOPRAMIDE HCL 10MG/2ML VIAL IV SCH ×4 (00:01→17:00)
[2022-08-31] MEDS: IPRATROPIUM BROMIDE (0.02%) 0.5MG/2.5ML NEB HHN SCH ×5 (00:32→15:51)
[2022-08-31] MEDS: ACETYLCYSTEINE 100MG/ML 10% VIAL 4ML INH SCH ×3 (00:32→15:51)
[2022-08-31] MEDS: GUAIFENESIN 200MG/10ML SUGAR FREE UDC PO SCH ×4 (04:57→22:42)
[2022-08-31] MEDS: BLOOD SUGAR DIAGNOSTIC STRIP TEST SCH ×4 (05:04→17:14)
[2022-08-31] MEDS: LEVETIRACETAM 1,250 MG in SODIUM CHLORIDE 0.9% 100 ML IV SCH ×2 (09:14→22:41)
[2022-08-31] MEDS: SCOPOLAMINE HYDROBROMIDE PATCH 72HR TD SCH (09:14)
[2022-08-31] MEDS: FOLIC ACID 1MG TABLET PO SCH (09:18)
[2022-08-31] MEDS: POTASSIUM CHLORIDE 20MEQ/PACKET PO SCH (09:18)
[2022-08-31] MEDS: AZATHIOPRINE 50MG TABLET PO SCH ×2 (09:18→16:57)
[2022-08-31] MEDS ORDERED: SODIUM CHLORIDE 0.9% 500 ML IV SCH (09:30)
[2022-08-31 13:40] LABS: EOSINOPHILS % 1.6 % (0.0-5.0); HEMATOCRIT. 28.8 % (36.0-48.0); HEMOGLOBIN. 9.4 g/dL (12.0-16.0); LYMPHOCYTES % 38.7 % (20.0-50.0); MEAN CORPUSCULAR HEMOGLOBIN 28.5 pg (28.0-32.0); MEAN CORPUSCULAR VOLUME 87.7 fL (81.0-99.0); MEAN PLATELET VOLUME 8.7 fl (7.4-10.4); MONOCYTES % 1.1 % (2.0-8.0); NEUTROPHILS % 58.6 % (40.0-76.0); PLATELET 133 x1000/uL (130-400); RED BLOOD CELL COUNT 3.28 mill/uL (4.2-5.4); RED CELL DISTRIBUTION WIDTH 19.1 % (11.6-14.6)
[2022-08-31 14:13] LABS: CHLORIDE 126 mEq/L (98-107)
[2022-08-31] MEDS: METOPROLOL TARTRATE 25MG TABLET NG PRN (15:29)
[2022-08-31] MEDS: DIGOXIN 500MCG/2ML AMP IV SCH (17:01)
[2022-08-31] MEDS: BETAMETHASONE DIPROPIONATE 0.05% LOTION 60ML TOP SCH ×2 (22:45→22:46)
[2022-09-01] VITALS (8 sets, daily range): BP systolic 62–127; BP diastolic 37–86
[2022-09-01] MEDS: METOCLOPRAMIDE HCL 10MG/2ML VIAL IV SCH ×2 (00:19→06:18)
[2022-09-01] MEDS: VANCOMYCIN 1000MG/20ML ORAL SOLN PO SCH ×2 (00:20→06:18)
[2022-09-01] MEDS: BLOOD SUGAR DIAGNOSTIC STRIP TEST SCH ×2 (00:20→06:18)
[2022-09-01] MEDS: IPRATROPIUM BROMIDE (0.02%) 0.5MG/2.5ML NEB HHN SCH ×3 (00:42→04:40)
[2022-09-01] MEDS: ACETYLCYSTEINE 100MG/ML 10% VIAL 4ML INH SCH (00:42)
[2022-09-01] MEDS: GUAIFENESIN 200MG/10ML SUGAR FREE UDC PO SCH (06:17)
[2022-09-01 06:21] LABS: HEMATOCRIT. 25.5 % (36.0-48.0); HEMOGLOBIN. 8.3 g/dL (12.0-16.0); MEAN CORPUSCULAR HEMOGLOBIN 28.9 pg (28.0-32.0); MEAN CORPUSCULAR VOLUME 88.6 fL (81.0-99.0); MEAN PLATELET VOLUME 8.9 fl (7.4-10.4); PLATELET 134 x1000/uL (130-400); RED BLOOD CELL COUNT 2.88 mill/uL (4.2-5.4)
[2022-09-01] MEDS ORDERED: METOPROLOL TARTRATE 50MG TABLET PO NR (07:00)
[2022-09-01 07:50] LABS: CHLORIDE 129 mEq/L (98-107)
[2022-09-01] MEDS ORDERED: PHENYLEPHRINE 100 MG in DEXT 5% WATER 240 ML IV PRN (08:30)
[2022-09-01] MEDS ORDERED: VASOPRESSIN 20 UNIT in SODIUM CHLORIDE 0.9% 99 ML IV PRN (08:30)
[2022-09-01] MEDS ORDERED: NOREPINEPHRINE 32 MG in DEXT 5% WATER 218 ML IV PRN (08:30)
[2022-09-01] MEDS ORDERED: DIGOXIN 500MCG/2ML AMP IV PRN (09:00)
[2022-09-01 13:58] LABS: PLATELET ESTIMATE NORMAL
== END 2022-09-01 11:30 | DRG 870 ==
LOC: ER 17:14 → 8WST 22:04 → ENRESERV 23:15 → MICUSO 07-29 20:51 → 5EST 08-16 09:22 → MICUNO 09-01 08:30
PROVIDERS: ADMIT Internal Medicine; ATTEND Internal Medicine
PROC: 0BH17EZ Insertion of Endotracheal Airway into Trachea, Via Natural or Artificial Opening (ICD-10-PCS; principal; 2022-07-30)
PROC: 5A1955Z Respiratory Ventilation, Greater than 96 Consecutive Hours (ICD-10-PCS; 2022-07-30)
PROC: 02HV33Z Insertion of Infusion Device into Superior Vena Cava, Percutaneous Approach (ICD-10-PCS; 2022-07-30)
PROC: B548ZZA Ultrasonography of Superior Vena Cava, Guidance (ICD-10-PCS; 2022-07-30)
PROC: 4A00X4Z Measurement of Central Nervous Electrical Activity, External Approach (ICD-10-PCS; 2022-07-31)
PROC: 0BH17EZ Insertion of Endotracheal Airway into Trachea, Via Natural or Artificial Opening (ICD-10-PCS; 2022-08-02)
PROC: 4A00X4Z Measurement of Central Nervous Electrical Activity, External Approach (ICD-10-PCS; 2022-08-04)
PROC: 4A00X4Z Measurement of Central Nervous Electrical Activity, External Approach (ICD-10-PCS; 2022-08-06)
PROC: 30233N1 Transfusion of Nonautologous Red Blood Cells into Peripheral Vein, Percutaneous Approach (ICD-10-PCS; 2022-08-07)
PROC: 4A00X4Z Measurement of Central Nervous Electrical Activity, External Approach (ICD-10-PCS; 2022-08-11)
PROC: 0DB78ZX Excision of Stomach, Pylorus, Via Natural or Artificial Opening Endoscopic, Diagnostic (ICD-10-PCS; 2022-08-26)
PROC: 0DH64UZ Insertion of Feeding Device into Stomach, Percutaneous Endoscopic Approach (ICD-10-PCS; 2022-08-26)
PROC: 5A12012 Performance of Cardiac Output, Single, Manual (ICD-10-PCS; 2022-09-01)
PROC: 5A2204Z Restoration of Cardiac Rhythm, Single (ICD-10-PCS; 2022-09-01)
DX: A41.9 Sepsis, unspecified organism (principal); J69.0 Pneumonitis due to inhalation of food and vomit; E43 Unspecified severe protein-calorie malnutrition; J96.01 Acute respiratory failure with hypoxia; G82.50 Quadriplegia, unspecified; I26.99 Other pulmonary embolism without acute cor pulmonale; M33.20 Polymyositis, organ involvement unspecified; M33.13 Other dermatomyositis without myopathy; D61.818 Other pancytopenia; D68.61 Antiphospholipid syndrome; G93.1 Anoxic brain damage, not elsewhere classified; K56.609 Unspecified intestinal obstruction, unspecified as to partial versus complete obstruction; E87.0 Hyperosmolality and hypernatremia; E87.29 Other acidosis; I31.39 Other pericardial effusion (noninflammatory); K56.7 Ileus, unspecified; K63.3 Ulcer of intestine; R65.20 Severe sepsis without septic shock; E87.6 Hypokalemia; I10 Essential (primary) hypertension; K57.90 Diverticulosis of intestine, part unspecified, without perforation or abscess without bleeding; K76.9 Liver disease, unspecified; M13.0 Polyarthritis, unspecified; M48.02 Spinal stenosis, cervical region; D50.9 Iron deficiency anemia, unspecified; E88.09 Other disorders of plasma-protein metabolism, not elsewhere classified; G40.909 Epilepsy, unspecified, not intractable, without status epilepticus; I27.21 Secondary pulmonary arterial hypertension; K56.41 Fecal impaction; I77.6 Arteritis, unspecified; G40.409 Other generalized epilepsy and epileptic syndromes, not intractable, without status epilepticus; I48.0 Paroxysmal atrial fibrillation; I95.9 Hypotension, unspecified; F32.A Depression, unspecified; M50.30 Other cervical disc degeneration, unspecified cervical region; J11.1 Influenza due to unidentified influenza virus with other respiratory manifestations; M51.36 Other intervertebral disc degeneration, lumbar region; M48.061 Spinal stenosis, lumbar region without neurogenic claudication; K20.90 Esophagitis, unspecified without bleeding; K44.9 Diaphragmatic hernia without obstruction or gangrene; K29.70 Gastritis, unspecified, without bleeding; I46.9 Cardiac arrest, cause unspecified; E10.65 Type 1 diabetes mellitus with hyperglycemia; K66.9 Disorder of peritoneum, unspecified; M47.9 Spondylosis, unspecified; Z20.822 Contact with and (suspected) exposure to COVID-19; N28.1 Cyst of kidney, acquired; R47.02 Dysphasia; Z79.4 Long term (current) use of insulin; Z86.718 Personal history of other venous thrombosis and embolism; Z86.73 Personal history of transient ischemic attack (TIA), and cerebral infarction without residual deficits; Z79.82 Long term (current) use of aspirin; Z79.899 Other long term (current) drug therapy; Z90.49 Acquired absence of other specified parts of digestive tract; Z79.01 Long term (current) use of anticoagulants; Z90.710 Acquired absence of both cervix and uterus; Z68.32 Body mass index [BMI] 32.0-32.9, adult
CPT/HCPCS: 31500; 36415; 36573; 36600; 70551; 70552; 71045; 72156; 74018; 74176; 74230; 76604; 76700; 78580; 80048; 80053; 80076; 80162; 80202; 80305; 81003; 82040; 82085; 82270; 82375; 82550; 82607; 82746; 82805; 82962; 83036; 83520; 83540; 83550; 83605; 83735; 84100; 84134; 84145; 84439; 84443; 84478; 84484; 85025; 85027; 85044; 86022; 86160; 86256; 86705; 86709; 86803; 86850; 86880; 86900; 86920; 87070; 87076; 87077; 87106; 87186; 87340; 87426; 88305; 90686; 90732; 92610; 92611; 92950; 93005; 93306; 93923; 93970; 94002; 94003; 94640; 94667; 97162; 97164; 97530; 99285; A6261; A9577; C1725; C1893; C9113; J0690; J0713; J1160; J1650; J1885; J1940; J1953; J1956; J2060; J2270; J2370; J2405; J2543; J2704; J2765; J2920; J2930; J3370; J3475; J3480; J3490; J7030; J7042; J7050; J7060; J7070; J7500; J7608; J8610; J9260; P9016; P9047; Q9963; A4315